=== PATIENT | male | born 1970 | race Caucasian/White ===

== ENCOUNTER → 2018-06-22 | Outpatient (CLI) | payer OTHER ==
[~2018-06-22] MED LIST: ALPR1TAB2 PO; BUSP15TA70 PO; IMD/2 PO; LISI-461 PO; LISI10TA PO; METR-163 PO; MULTTAB58 PO; NUTR-977 PO; PRLSR20 PO; SULF500T36 PO; SULF500T8 PO
[2018-06-22 09:27] LABS: BLOOD UREA NITROGEN 10 mg/dl (7-18); CALCIUM 8.3 mg/dl (8.5-10.1); CARBON DIOXIDE 30 mmol/L (21-32); CREATININE 0.95 mg/dl (0.60-1.40); GLUCOSE 80 mg/dl (70-99); POTASSIUM 3.3 mmol/L (3.5-5.1); SODIUM 143 mmol/L (136-145)
== END ==
LOC: C.LABSPEC 10:44
DX: N17.9 Acute kidney failure, unspecified (principal)

== ENCOUNTER 2021-02-04 13:44 | Observation (INO) ==
[2021-02-04] MEDS ORDERED: PIPERACILL/TAZOBAC CONSULT ACTIVE PRN ×2 (14:49→21:21)
[2021-02-04] MEDS ORDERED: PIPERACILLIN/TAZOBACTAM 4.5 GM/120 ML BAG IV ONE (14:49)
[2021-02-04] MEDS ORDERED: HYDROmorphone INJ 1 MG/ML SYRINGE IV STA (14:49)
--- NOTE | 2021-02-04 14:57 | Emergency Department Note ---
Impression & Plan Abdominal wall abscess, Crohn's disease, Fistula, Leukocytosis, Hypomagnesemia ED Provider Note NAME: GINGER HERNANDEZ AGE: 51 SEX: M : 1970 ARRIVES VIA: Walk-In INFORMANT: [Patient] ED PROVIDER(S): [Eddie Carvajal MD] CHIEF COMPLAINT: Abdominal pain HISTORY OF PRESENT ILLNESS: Patient is a 51-year-old male presents to the ER with several days of increasing abdominal pain. The pain is severe and constant without radiation. The patient states he has Crohn's disease and he has known fistulas. He states that he was discharged from [facility] in [place] on the , he states about 3 weeks ago. Patient states that he was told to stop his Cipro and Flagyl by his GI doctor about 9 days ago. Since stopping the Cipro and Flagyl, he seems to be getting worse. He has had increased drainage across the abdomen from an area that has been termed a fistula. He has more pain in this area as well. He states he has rectal drains now but they are doing well, no drainage and no pain in the rectal area. The patient has had a day or so of a low-grade temperature. He has had some nausea without vomiting. There has been no cough or congestion or shortness of breath. The patient states that he is concerned that his Crohn's and his fistulas are worsening. Of note, the patient is scheduled for a colonoscopy on the , 5 days from now. REVIEW OF SYSTEMS: See HPI for pertinent positives and negatives. A total of ten systems were reviewed and were otherwise negative. PMHx/PSHx: See Below SOCIAL HISTORY: See Below. PHYSICAL EXAM: GENERAL: Patient is in mild distress from pain. HEENT: No acute trauma, normocephalic atraumatic, mucous membranes moist, no nasal congestion, no scleral icterus. NECK: No stridor, no adenopathy, no meningismus, trachea is midline. Lungs: Wheezes heard bilaterally, no respiratory distress, no rhonchi. Breath sounds equal. HEART: Mildly tachycardic, regular rhythm, no murmurs. ABDOMEN: Soft. He does have an area of puslike drainage to the mid lower abdomen. There is some surrounding erythema and swelling. This area is tender. He has some mild diffuse abdominal tenderness across the rest of his abdomen. EXTREMITIES: No cyanosis or edema, full range of motion of all the joints with out pain or difficulty, no signs for acute trauma. NEUROLOGIC: Oriented x 3, no acute motor or sensory deficits, no focal weakness. SKIN: No rash, no jaundice, no diaphoresis. Rectal: He does have 2 drains to each side of the anus/rectum. No drainage, no fluctuance or tenderness to palpation. DIFFERENTIAL DIAGNOSIS: Appendicitis, infections, diverticulitis, UTI, obstruction, abscess, mesenteric ischemia, aortic pathology, inflammatory bowel disease, renal colic, PUD, warren creatitis, biliary pathology, hernia, volvulus, constipation, as well as other pathologies. EMERGENCY DEPARTMENT COURSE/PROCEDURES: ECG: Indication was tachycardia. The ECG shows a normal sinus rhythm with some sinus arrhythmia. The rate is 93. There is no ST elevation, no PVCs. The QTc is 450. When compared to an ECG from 28 December 2020, there is no sign ificant change. Continuous Cardiac Monitoring: An order was placed for continuous cardiac monitoring. The monitor shows a rate of 97 with normal sinus rhythm. MEDICAL DECISION MAKING: There is a moderate leukocytosis, this of course is consistent with infection. The patient has a mild anemia at 12.7. There is a normal platelet count. No kidney failure. The patient's magnesium is somewhat low at 1.5. No worrisome liver enzyme elevation. No evidence for pancreatitis. Urinalysis does not show infection. Abdominal and pelvis CT shows some chronic change from his Crohn's disease. There was a potential new collection of fluid/abscess across the abdominal wall. No bowel obstruction noted. There was no new internal abscess documented. On exam, the patient was not toxic or febrile. He did not have peritonitis. I did obtain a culture from the drainage from his abdominal wall, this result is pending. Patient was given IV Zosyn as empiric antibiotic coverage. He was given IV magnesium, IV Dilaudid. I did speak with the surgeon from [facility] in [place]. They did not feel the patient required emergent transfer to their facility. They felt that if he did well overnight with IV antibiotics that he may be then discharged on oral a ntibiotics to follow-up next week with them. If he worsened overnight or had difficulty throughout the day tomorrow, transfer may at that point be required. I spoke with the patient and case management. The on-call hospitalist was consulted. 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 Hypertension Medical marijuana use Opioid dependence Perianal fistula due to Crohn's disease Throat pain Tongue pain Surgical History Fistula anal fistula x2 with repair H/O skin graft RIGHT LEG History of bowel resection X2 TOTAL History of colonoscopy History of esophagogastroduodenoscopy (EGD) History of incision and drainage (~12/2020) perianal fistula and abdominal wall abcess with seton placement @ [facility] History of open reduction and internal fixation (ORIF) procedure LEFT ANKLE History of surgery Salivary Gland - 2017, Sublingual Gland - 2018 History of tonsillectomy Family History Mother Family hx of colon cancer Stroke Family/Other Family history of diabetes mellitus Other Allergies Cancer Colorectal cancer Hypertension No family history of adverse response to anesthesia No family history of bleeding disorder Denies family history of Ovarian cancer Prostate cancer Myocardial infarction Breast cancer Social History Smoking Status: Current every day smoker Tobacco Type: Cigarettes Cigarettes Per Day: "1 pack lasts 10 days"; Second Hand Exposure: Yes (mom smoked); Hx Alcohol Use: No Hx Substance Use: Yes (medical marijuana) Preferred Language: Libyan Communication Ability: Effective Visual Impairment: No Limitations Hearing Ability: Normal Assistance Representative Required: No Beliefs That Will Affect Care: None marital status: Current Living Situation: Spouse current occupational status: disabled Feels Safe at Home: Yes Childhood Exposure to Second-Hand Smoke: Yes Dental Care, Regularly: Yes Physical Activity Frequency: Daily Seatbelt Use: always Sunscreen Use: No Assistive Devices: Glasses Allergies Allergies Allergy/AdvReac Type Severity Reaction Status Date / Time infliximab Allergy Severe TONGUE Verified 02/04/21 16:52 SWELLING codeine Allergy Mild Rash Verified 02/04/21 16:52 Home Meds Home Medications Medication Instructions Recorded Confirmed alprazolam 1 mg PO TID PRN 05/18/19 02/04/21 vitamin B complex [B 1 tab PO QAM 12/10/20 02/04/21 Complex-Vitamin B12] cholecalciferol (vitamin D3) 50,000 unit PO WK 12/19/20 02/04/21 Previous Rx's Medication Instructions Recorded lisinopril 10 mg tablet 10 mg PO QAM #90 tab 08/10/20 loperamide 2 mg tablet 2 mg PO Q6H PRN #60 tab 08/10/20 loratadine 10 mg tablet 10 mg PO QAM #90 tab 08/10/20 nystatin 100,000 unit/mL oral 5 ml PO QID #250 ml 12/17/20 suspension omeprazole 20 mg capsule,delayed 20 mg PO BID #180 cap 01/10/21 release oxycodone-acetaminophen 7.5 mg-325 1 tab PO Q8H PRN #90 tab 01/13/21 mg tablet blood glucose control, low #1 ea 01/20/21 blood sugar diagnostic #200 ea 01/20/21 blood-glucose meter #1 ea 01/20/21 lancets 30 gauge #200 ea 01/20/21 gabapentin 300 mg capsule 300 mg PO .COMPLEX #90 cap 01/27/21 sodium sulf 1.479 gram-potas 24 tab PO .COMPLEX #24 tab 01/27/21 chloride 0.188 gram-magnesium sulf tablet sulfasalazine 500 mg tablet 500 mg PO BID #180 tab 01/27/21 Results & Data (ED) Vital Signs Vital Signs - 24 hr 02/04/21 13:52 02/04/21 15:09 02/04/21 15:12 Temperature 36.8 C Temperature Source Oral Pulse Rate 130 H 98 H 112 H Pulse Rate [Finger] Pulse Rate from SpO2 Sensor 96 H Respiratory Rate 20 20 20 Respiratory Effort / Characteristics Non-Labored Spontaneous Respiratory Depth Normal Respiratory Pattern Regular Blood Pressure 136/89 131/86 Blood Pressure [Left Arm] Blood Pressure Mean 104 101 Blood Pressure Mean [Left Arm] Pulse Oximetry 95 95 95 Oxygen Delivery Method Room Air Room Air Sepsis Recent Fever Within 48 Hours No Sepsis New/Unexplained Change in Mental Status N/A Sepsis Action Taken by Nursing No Action Required 02/04/21 15:13 02/04/21 15:30 02/04/21 15:31 Temperature Temperature Source Pulse Rate 97 H 91 H 96 H Pulse Rate [Finger] Pulse Rate from SpO2 Sensor 90 91 H Respiratory Rate 17 22 13 Respiratory Effort / Characteristics Respiratory Depth Respiratory Pattern Blood Pressure 132/88 Blood Pressure [Left Arm] Blood Pressure Mean 102 Blood Pressure Mean [Left Arm] Pulse Oximetry 95 96 Oxygen Delivery Method Sepsis Recent Fever Within 48 Hours Sepsis New/Unexplained Change in Mental Status Sepsis Action Taken by Nursing 02/04/21 16:00 02/04/21 16:01 02/04/21 16:30 Temperature Temperature Source Pulse Rate 83 86 85 Pulse Rate [Finger] Pulse Rate from SpO2 Sensor 85 92 H 88 Respiratory Rate 19 20 18 Respiratory Effort / Characteristics Respiratory Depth Respiratory Pattern Blood Pressure 128/87 141/77 H Blood Pressure [Left Arm] Blood Pressure Mean 100 98 Blood Pressure Mean [Left Arm] Pulse Oximetry 96 95 95 Oxygen Delivery Method Sepsis Recent Fever Within 48 Hours Sepsis New/Unexplained Change in Mental Status Sepsis Action Taken by Nursing 02/04/21 16:31 02/04/21 17:00 02/04/21 17:01 Temperature Temperature Source Pulse Rate 89 80 93 H Pulse Rate [Finger] Pulse Rate from SpO2 Sensor 88 81 91 H Respiratory Rate 17 12 19 Respiratory Effort / Characteristics Respiratory Depth Respiratory Pattern Blood Pressure 110/80 Blood Pressure [Left Arm] Blood Pressure Mean 90 Blood Pressure Mean [Left Arm] Pulse Oximetry 94 95 94 Oxygen Delivery Method Sepsis Recent Fever Within 48 Hours Sepsis New/Unexplained Change in Mental Status Sepsis Action Taken by Nursing 02/04/21 17:30 02/04/21 17:31 02/04/21 18:00 Temperature Temperature Source Pulse Rate 83 83 77 Pulse Rate [Finger] Pulse Rate from SpO2 Sensor Respiratory Rate 19 21 16 Respiratory Effort / Characteristics Respiratory Depth Respiratory Pattern Blood Pressure 107/82 113/85 Blood Pressure [Left Arm] Blood Pressure Mean 90 94 Blood Pressure Mean [Left Arm] Pulse Oximetry Oxygen Delivery Method Sepsis Recent Fever Within 48 Hours Sepsis New/Unexplained Change in Mental Status Sepsis Action Taken by Nursing 02/04/21 18:01 02/04/21 18:51 Temperature Temperature Source Pulse Rate 79 Pulse Rate [Finger] 77 Pulse Rate from SpO2 Sensor Respiratory Rate 15 18 Respiratory Effort / Characteristics Respiratory Depth Respiratory Pattern Blood Pressure Blood Pressure [Left Arm] 109/85 Blood Pressure Mean Blood Pressure Mean [Left Arm] 93 Pulse Oximetry 95 Oxygen Delivery Method Room Air Sepsis Recent Fever Within 48 Hours Sepsis New/Unexplained Change in Mental Status Sepsis Action Taken by [facility] Medications Current Medication List: was personally reviewed by me Laboratory Data Attestation: I reviewed the patient's lab results. Result diagrams: 02/04/21 15:00 02/04/21 15:00 Lab Results 02/04/21 02/04/21 02/04/21 Range/Units 15:00 15:00 15:06 WBC 16.74 H (4.8-10.8) K/uL RBC 4.32 L (4.7-6.1) M/uL Hgb 12.7 L (14.0-18.0) g/dL Hct 37.2 L (42-52) % MCV 86.1 (80-100) fL MCH 29.4 (25-34) pg MCHC 34.1 (32-36) g/dL RDW Std Deviation 46.3 (36.4-46.3) fL RDW Coeff of Juancarlos 14.6 H (11.5-14.5) % Plt Count 367 (130-400) K/uL MPV 10.1 (7.4-10.4) fL Immature Gran % (Auto) 0.5 % Neut % (Auto) 72.2 % Lymph % (Auto) 20.6 % [place] % (Auto) 6.0 % Eos % (Auto) 0.5 % Baso % (Auto) 0.2 % Neut # (Auto) 12.08 H (1.4-6.5) K/uL Lymph # (Auto) 3.45 H (1.2-3.4) K/uL [place] # (Auto) 1.01 H (0.11-0.59) K/uL Eos # (Auto) 0.09 (0-0.5) K/uL Baso # (Auto) 0.03 (0-0.2) K/uL Immature Gran # (Auto) 0.08 H (0.00-0.02) K/uL Sodium 138 (136-145) mmol/L Potassium 3.9 (3.5-5.1) mmol/L Chloride 106 (98-107) mmol/L Carbon Dioxide 26 (21-32) mmol/L Anion Gap 6.0 (3-11) BUN 13 (7-18) mg/dl Creatinine 0.93 (0.6-1.4) mg/dl Est Cr Clr Drug Dosing 87.8 ml/min Est GFR ( Amer) 111.3 Est GFR (Non-Af Amer) 96.1 BUN/Creatinine Ratio 14.5 (10-20) Glucose 121 H (70-99) mg/dl Lactate 1.4 (0.4-2.0) mmol/L Calcium 9.0 (8.5-10.1) mg/dl Magnesium 1.5 L (1.8-2.4) mg/dl Total Bilirubin 0.3 (0.2-1) mg/dl AST 23 (15-37) U/L ALT 46 (12-78) U/L Alkaline Phosphatase 83 (45-117) U/L Total Protein 7.1 (6.4-8.2) gm/dl Albumin 3.5 (3.4-5.0) gm/dl Globulin 3.6 (2.5-4.0) gm/dl Albumin/Globulin Ratio 1.0 (0.9-2) Lipase 178 (73-393) U/L Urine Color Urine Appearance (Clear) Urine pH (4.5-7.5) Ur Specific [place] (1.000-1.030) Urine Protein (Negative) Urine Glucose (UA) (Negative) Urine Ketones (Negative) Urine Blood (Negative) Urine Nitrite (Negative) Urine Bilirubin (Negative) Urine Urobilinogen (Negative) Ur Leukocyte Esterase (Negative) 02/04/21 Range/Units 15:28 WBC (4.8-10.8) K/uL RBC (4.7-6.1) M/uL Hgb (14.0-18.0) g/dL Hct (42-52) % MCV (80-100) fL MCH (25-34) pg MCHC (32-36) g/dL RDW Std Deviation (36.4-46.3) fL RDW Coeff of Juancarlos (11.5-14.5) % Plt Count (130-400) K/uL MPV (7.4-10.4) fL Immature Gran % (Auto) % Neut % (Auto) % Lymph % (Auto) % [place] % (Auto) % Eos % (Auto) % Baso % (Auto) % Neut # (Auto) (1.4-6.5) K/uL Lymph # (Auto) (1.2-3.4) K/uL [place] # (Auto) (0.11-0.59) K/uL Eos # (Auto) (0-0.5) K/uL Baso # (Auto) (0-0.2) K/uL Immature Gran # (Auto) (0.00-0.02) K/uL Sodium (136-145) mmol/L Potassium (3.5-5.1) mmol/L Chloride (98-107) mmol/L Carbon Dioxide (21-32) mmol/L Anion Gap (3-11) BUN (7-18) mg/dl Creatinine (0.6-1.4) mg/dl Est Cr Clr Drug Dosing ml/min Est GFR ( Amer) Est GFR (Non-Af Amer) BUN/Creatinine Ratio (10-20) Glucose (70-99) mg/dl Lactate (0.4-2.0) mmol/L Calcium (8.5-10.1) mg/dl Magnesium (1.8-2.4) mg/dl Total Bilirubin (0.2-1) mg/dl AST (15-37) U/L ALT (12-78) U/L Alkaline Phosphatase (45-117) U/L Total Protein (6.4-8.2) gm/dl Albumin (3.4-5.0) gm/dl Globulin (2.5-4.0) gm/dl Albumin/Globulin Ratio (0.9-2) Lipase (73-393) U/L Urine Color Yellow Urine Appearance Clear (Clear) Urine pH 5.5 (4.5-7.5) Ur Specific [place] 1.022 (1.000-1.030) Urine Protein Negative (Negative) Urine Glucose (UA) Negative (Negative) Urine Ketones Trace H (Negative) Urine Blood Negative (Negative) Urine Nitrite Negative (Negative) Urine Bilirubin Negative (Negative) Urine Urobilinogen Negative (Negative) Ur Leukocyte Esterase Negative (Negative) Administered Medications Hydromorphone HCl (Hydromorphone Inj 1 Mg/Ml Syringe) 1 mg IV Q30M PRN PRN Reason: Pain Stop: 02/18/21 14:48 Last Admin: 02/04/21 18:50 Dose: 1 mg Documented by: [id number] Admin: 02/04/21 16:22 Dose: 1 mg Documented by: [id number] Discontinued Medications Hydromorphone HCl (Hydromorphone Inj 1 Mg/Ml Syringe) 1 mg IV NOW STA Stop: 02/04/21 14:50 Last Admin: 02/04/21 15:24 Dose: 1 mg Documented by: [id number] Piperacillin Sod/Tazobactam Sod (Zosyn) 4.5 gm in 120 mls @ 240 mls/hr IV NOW ONE Stop: 02/04/21 15:18 Last Infusion: 02/04/21 15:54 Dose: 0 mls/hr Documented by: [id number] Admin: 02/04/21 15:24 Dose: 240 mls/hr Documented by: [id number] Magnesium Sulfate/Dextrose (Magnesium Sulfate / D5w) 1 gm in 100 mls @ 100 mls/hr IV NOW STA Stop: 02/04/21 16:37 Last Infusion: 02/04/21 17:52 Dose: 0 mls/hr Documented by: [id number] Admin: 02/04/21 16:22 Dose: 100 mls/hr Documented by: [id number] Ioversol (Ioversol 100ml) 94 ml IV ONCE ONE Stop: 02/04/21 17:19 Last Admin: 02/04/21 17:18 Dose: 94 ml Documented by: [id number] Imaging Data Radiologist's Impression: CT SCAN OF THE ABDOMEN AND PELVIS WITH IV CONTRAST CLINICAL HISTORY: Generalized abdominal pain. Crohn's disease. Fistulous. COMPARISON STUDY: Multiple prior abdominal CT scans, most recently dated 01/06/2021. TECHNIQUE: Following the IV administration of 94 cc of Optiray 320, CT scan of the abdomen and pelvis is performed from the lung bases to the proximal femora. Images are reviewed in the axial, sagittal, and coronal planes. IV contrast was administered without complication. Oral contrast was utilized. A dose lowering technique was utilized adhering to the principles of ALARA. CT DOSE: 285.60 mGy.cm FINDINGS: Lung bases: The heart is normal in size and without pericardial effusion. A fat- containing Bochdalek hernia is seen at the left lung base. Scattered calcified granulomas are observed. The lung bases are otherwise clear. Liver: The contrast-enhanced liver is enlarged, measuring 22.0 cm in length. The liver is otherwise normal in contour and attenuation. There is no intrahepatic biliary ductal dilatation. The hepatic veins and portal veins are patent. Gallbladder: Unremarkable. Spleen: Normal in size and attenuation. Pancreas: Unremarkable. Adrenal glands: A 1.6 cm right adrenal adenoma is unchanged. The left adrenal gland is normal as imaged. Kidneys: The contrast enhanced kidneys are normal in size and without hydronephrosis. The kidneys enhance symmetrically. Abdominal vasculature: The abdominal aorta is normal in course and caliber noting mild atherosclerotic calcification. Bowel: There is postoperative change from ileocecal resection with ileocolic anastomosis. No bowel obstruction is seen, with enteric contrast reaching the transverse colon. There are thick walled and edematous loops of distal small bowel with mucosal hyperemia seen at and above the anastomosis with surrounding inflammation. There is a fistulous connection between an inflamed loop of small bowel in the ventral lower abdomen and the subcutaneous soft tissues in the right lower quadrant. This is best seen on axial image #270. This extends to the peritoneum. The soft tissue collection within the abdominal wall at this site seen on 12/28/2020 has resolved. Edema is again seen within the right rectus muscle at this level on image #268. There is dermal thickening and cutaneous fluid identified in the ventral abdominal wall just to the right of midline on image #277. This measures up to 8 mm in thickness. There are wires present within bilateral perianal fistulas. The perianal fluid collections seen on 12/28/2020 are no longer apparent. Peritoneum: There is no intraperitoneal free air or abdominal ascites. Lymphadenopathy: Numerous mildly enlarged mesenteric lymph nodes are present in the lower abdomen and measure up to 9 mm in short axis. Pelvic viscera: The bladder, prostate, and seminal vesicles are normal as imaged. Skeletal structures: No lytic or blastic lesions are seen. Soft tissues: The patient is cachectic. IMPRESSION: 1. Again seen are postoperative changes of right ileocecectomy with ileocolic anastomosis. There is no bowel obstruction. 2. Again seen is evidence of active inflammatory bowel disease involving the distal/terminal ileum above the anastomosis. 3. Again seen is a fistulous tract between a loop of distal ileum and the right lower quadrant abdominal wall. 4. The fluid collection within the right lower quadrant abdominal wall seen on 12/28/2020 has resolved. There is dermal thickening with a tiny pocket of fluid at the dermal surface just the right of midline at this level. This is new from previous and may represent a tiny abscess. Clinical correlation will be required. 5. There is persistent edema and infiltrative change seen within the right rectus muscle at this level. No organized fluid collection is identified at this site. 6. No intraperitoneal free air or abdominal ascites is identified. 7. There are wires within the bilateral perianal fistulas. The fluid collections seen on 12/28/2020 have resolved. 8. Hepatomegaly. 9. Mildly enlarged mesenteric lymph nodes are likely reactive. 10. Additional findings as above. Discharge Plan Visit Data Chief Complaint: Abdominal Pain Stated Complaint: ABDOMINAL PAIN ED Provider: Eddie Carvajal Discharge Problem: Abdominal wall abscess, Crohn's disease, Fistula, Leukocytosis, Hypomagnesemia Patient Disposition: Admitted As Inpatient Condition: Fair Forms Stand Alone Forms: [email or web address] [facility] [employer] Prescriptions Prescriptions: No Action gabapentin 300 mg capsule 300 mg PO .COMPLEX Qty: 90 RF: 2 nystatin 100,000 unit/mL suspension 5 ml PO QID Qty: 250 RF: 0 omeprazole 20 mg capsule,delayed release(DR/EC) 20 mg PO BID Qty: 180 RF: 0 oxycodone-acetaminophen [Percocet] 7.5-325 mg tablet 1 tab PO Q8H PRN (Reason: Pain) Qty: 90 RF: 0 (DME) blood-glucose meter [True Metrix Air Glucose Meter] Kit See Rx Instructions .ROUTE .MEDSUPPLY Qty: 1 RF: 0 (DME) True Metrix Glucose Test Strip Strip See Rx Instructions .ROUTE .MEDSUPPLY Qty: 200 RF: 1 (DME) lancets [TRUEplus Lancets] 30 gauge misc See Rx Instructions .ROUTE .MEDSUPPLY Qty: 200 RF: 1 (DME) True Metrix Level 1 Solution See Rx Instructions .ROUTE .MEDSUPPLY Qty: 1 RF: 0 sulfasalazine 500 mg tablet 500 mg PO BID Qty: 180 RF: 1 lisinopril 10 mg tablet 10 mg PO QAM Qty: 90 RF: 3 loratadine [Claritin] 10 mg tablet 10 mg PO QAM Qty: 90 RF: 3 loperamide [Imodium A-D] 2 mg tablet 2 mg PO Q6H PRN (Reason: Diarrhea) Qty: 60 RF: 5 Sutab 1.479-0.188 gram tablet 24 tab PO .COMPLEX Qty: 24 RF: 0 alprazolam 1 mg tablet 1 mg PO TID PRN (Reason: Anxiety) RF: 0 cholecalciferol (vitamin D3) 1,250 mcg (50,000 unit) capsule 50,000 unit PO WK RF: 0 vitamin B complex [B Complex-Vitamin B12] Tablet 1 tab PO QAM RF: 0 Referrals Referrals: Mahad Smith DO [Primary Care Provider] - Discharge Problem: Crohn's disease Qualifiers: Gastrointestinal tract location: unspecified location Digestive disease complication type: with fistula Qualified Code(s): K50.913 - Crohn's disease, unspecified, with fistula Leukocytosis Qualifiers: Leukocytosis type: unspecified Qualified Code(s): D72.829 - Elevated white bl ood cell count, unspecified
[2021-02-04 15:17] LABS: Basophils # (auto) 0.03 K/uL (0-0.2); Basophils % (auto) 0.2 %; Eosinophils # (auto) 0.09 K/uL (0-0.5); Eosinophils % (auto) 0.5 %; Hematocrit (blood only) 37.2 % (42-52); Hemoglobin 12.7 g/dL (14.0-18.0); Immature Granulocytes # (auto) 0.08 K/uL (0.00-0.02); Immature Granulocytes % (auto) 0.5 %; Lymphocytes # (auto) 3.45 K/uL (1.2-3.4); Lymphocytes % (auto) 20.6 %; Mean Corpuscular Hemoglobin 29.4 pg (25-34); Mean Corpuscular Hgb Conc 34.1 g/dL (32-36); Mean Corpuscular Volume 86.1 fL (80-100); Mean Platelet Volume 10.1 fL (7.4-10.4); Monocytes # (auto) 1.01 K/uL (0.11-0.59); Neutrophils # (auto) 12.08 K/uL (1.4-6.5); Neutrophils % (auto) 72.2 %; Platelet Count 367 K/uL (130-400); RDW Coefficient of Variation 14.6 % (11.5-14.5); RDW Standard Deviation 46.3 fL (36.4-46.3); Red Blood Count 4.32 M/uL (4.7-6.1); White Blood Count 16.74 K/uL (4.8-10.8)
[2021-02-04 15:37] LABS: Albumin Level 3.5 gm/dl (3.4-5.0); BUN Creatinine Ratio 14.5 (10-20); Creatinine Clr Calc Pharmacy 87.8 ml/min; Est GFR (African American) 111.3; Est GFR (Non-African American) 96.1; Magnesium 1.5 mg/dl (1.8-2.4); Potassium 3.9 mmol/L (3.5-5.1)
[2021-02-04] MEDS ORDERED: MAGNESIUM SULFATE / D5W 1 GM/100 ML BAG IV STA (15:38)
[2021-02-04 15:39] LABS: Bilirubin,Total 0.3 mg/dl (0.2-1); Globulin 3.6 gm/dl (2.5-4.0); Total Protein 7.1 gm/dl (6.4-8.2)
[2021-02-04 15:40] LABS: Appearance Urine Clear (Clear); Bilirubin Urine Negative (Negative); Blood Urine Negative (Negative); Color Urine Yellow; Glucose Urine UA Negative (Negative); Ketones Urine Trace (Negative); Leukocyte Esterase Urine Negative (Negative); Nitrite Urine Negative (Negative); Protein Urine Negative (Negative); Specific Gravity Urine 1.022 (1.000-1.030); Urobilinogen Urine Negative (Negative); pH Urine 5.5 (4.5-7.5)
[2021-02-04] MEDS: HYDROmorphone INJ 1 MG/ML SYRINGE IV PRN ×3 (16:22→23:30)
[2021-02-04] MEDS ORDERED: OPTIRAY 320 100ml IV ONE (17:18)
--- NOTE | 2021-02-04 17:57 | CT Scan Report ---
CT SCAN OF THE ABDOMEN AND PELVIS WITH IV CONTRAST CLINICAL HISTORY: Generalized abdominal pain. Crohn's disease. Fistulous. COMPARISON STUDY: Multiple prior abdominal CT scans, most recently dated 01/06/2021. TECHNIQUE: Following the IV administration of 94 cc of Optiray 320, CT scan of the abdomen and pelvi s is performed from the lung bases to the proximal femora. Images are reviewed in the axial, sagittal , and coronal planes. IV contrast was administered without complication. Oral contrast was utilized. A dose lowering technique was utilized adhering to the principles of ALARA. CT DOSE: 285.60 mGy.cm FINDINGS: Lung bases: The heart is normal in size and without pericardial effusion. A fat-containing Bochdalek hernia is seen at the left lung base. Scattered calcified granulomas are observed. The lung bases are otherwise clear. Liver: The contrast-enhanced liver is enlarged, measuring 22.0 cm in length. The liver is otherwise n ormal in contour and attenuation. There is no intrahepatic biliary ductal dilatation. The hepatic vei ns and portal veins are patent. Gallbladder: Unremarkable. Spleen: Normal in size and attenuation. Pancreas: Unremarkable. Adrenal glands: A 1.6 cm right adrenal adenoma is unchanged. The left adrenal gland is normal as imag ed. Kidneys: The contrast enhanced kidneys are normal in size and without hydronephrosis. The kidneys enh ance symmetrically. Abdominal vasculature: The abdominal aorta is normal in course and caliber noting mild atheroscleroti c calcification. Bowel: There is postoperative change from ileocecal resection with ileocolic anastomosis. No bowel ob struction is seen, with enteric contrast reaching the transverse colon. There are thick walled and ed ematous loops of distal small bowel with mucosal hyperemia seen at and above the anastomosis with wade rounding inflammation. There is a fistulous connection between an inflamed loop of small bowel in the ventral lower abdomen and the subcutaneous soft tissues in the right lower quadrant. This is best se en on axial image #270. This extends to the peritoneum. The soft tissue collection within the abdomin al wall at this site seen on 12/28/2020 has resolved. Edema is again seen within the right rectus muscl e at this level on image #268. There is dermal thickening and cutaneous fluid identified in the ventr al abdominal wall just to the right of midline on image #277. This measures up to 8 mm in thickness. There are wires present within bilateral perianal fistulas. The perianal fluid collections seen on 12/28/2020 are no longer apparent. Peritoneum: There is no intraperitoneal free air or abdominal ascites. Lymphadenopathy: Numerous mildly enlarged mesenteric lymph nodes are present in the lower abdomen and measure up to 9 mm in short axis. Pelvic viscera: The bladder, prostate, and seminal vesicles are normal as imaged. Skeletal structures: No lytic or blastic lesions are seen. Soft tissues: The patient is cachectic. IMPRESSION: 1. Again seen are postoperative changes of right ileocecectomy with ileocolic anastomosis. There is n o bowel obstruction. 2. Again seen is evidence of active inflammatory bowel disease involving the distal/terminal ileum ab ove the anastomosis. 3. Again seen is a fistulous tract between a loop of distal ileum and the right lower quadrant abdomi nal wall. 4. The fluid collection within the right lower quadrant abdominal wall seen on 12/28/2020 has resolved. There is dermal thickening with a tiny pocket of fluid at the dermal surface just the right of midli ne at this level. This is new from previous and may represent a tiny abscess. Clinical correlation wi ll be required. 5. There is persistent edema and infiltrative change seen within the right rectus muscle at this leve l. No organized fluid collection is identified at this site. 6. No intraperitoneal free air or abdominal ascites is identified. 7. There are wires within the bilateral perianal fistulas. The fluid collections seen on 12/28/2020 hav e resolved. 8. Hepatomegaly. 9. Mildly enlarged mesenteric lymph nodes are likely reactive. 10. Additional findings as above. ACT 112: Negative or not required by law. Electronically signed by: Eddie Weiner M.D. 02/04/2021 5:55 PM
--- NOTE | 2021-02-04 20:00 | History & Physical Report ---
Date of Service February 04, 2021 Assessment & Plan (1) Crohn's disease: 51-year-old male with a past medical history of Crohn's disease with numerous associated bowel surgeries and perianal fistulas with drains in place, hyperlipidemia, anxiety, presents with a 5-day history of increasing abdominal pain. #Acute on chronic exacerbation of Crohn's disease causing abdominal and perianal fistulas with leukocytosis concerning for infection Patient with a longstanding history of Crohn's disease well-known to veronica Macedo and Arash BATEMAN. Recently discharged from [place] for Crohn's disease flareup at which point his abdominal abscess was drained, and bilateral perianal drains were placed in his fistulas. Patient was discharged on Cipro and Flagyl and did well with completing his course of antibiotics approximately 9 days ago. Since that time he said increasing abdominal pain, with drainage from his abdominal fistula. He has had some associated fevers and chills, nausea and vomiting. He presented today for evaluation of his symptoms. [facility] gastroenterology was called recommending admission and IV antibiotics and GI consultation. Patient reports he is currently tolerating his diet, voiding and stooling appropriately -Zosyn narrow pending GI recommendations -Consult GI -N.p.o. pending GI evaluation -Daily BMP/CBC -Pain control, baseline oxycodone, 2 mg morphine q4h prn for exacerbation -Blood cultures obtained -Continue loperamide 2 mg p.o. every 6 hours as needed #Hypertension -Lisinopril 10 mg #Chronic pain -Continue gabapentin 300 mg -Continue oxycodone 7.5 mg325 #GERD -Continue omeprazole #Anxiety -Continue lorazepam 1 mg p.o. 3 times daily as needed FENa: N.p.o. pending GI evaluation Code Status: Full code DVT PPX: SCDs PT/OT: Not indicated Dispo: [facility] Cody Baum MD PGY 2, FCM This chart was completed utilizing [employer] voice recognition software. Grammatical errors, random word insertions, pronoun errors, and in complete sentences are an occasional consequence of the system. Any questions or concerns about the content, text, or information contained within the body of this dictation should be addressed directly to the physician for clarification. (2) Fistula: (3) Leukocytosis: (4) Hypomagnesemia: (5) Hyperlipidemia: (6) Benign hypertension: (7) Anxiety disorder: (8) Perianal fistula due to Crohn's disease: History of Present Illness 51-year-old male with a past medical history of Crohn's disease with numerous associated bowel surgeries and perianal fistulas with drains in place, hyperlipidemia, anxiety, presents with a 5-day history of increasing abdominal pain. Pain is severe and constant without radiation. He was recently discharged from [facility] in [place] on the on Cipro and Flagyl completing his regimen approximately 9 days ago. Since stopping his antibiotics his pain is been getting worse. He has drainage from his abdomen from a fistula which has been present since his most recent discharge. He has increased pain in his area. He states he has rectal drains in place and that they have been working well, he has no complaints or issues there. Patient does endorse a fever and chills over the last few days he has had nausea with some vomiting. Denying respiratory symptoms including physical shortness of breath, cardiac symptoms including chest pressure or chest pain. He has had no recent illnesses. States he has been tolerating his diet recently, voiding and stooling appropriately. Patient states he is scheduled for colonoscopy on the 5 days from now. Presentation to the [facility] the emergency department to routine labs were obtained demonstrating a white count of 16.74 with a neutrophil predominance, Chem-7 within normal limits, liver function studies within normal limits., Lipase within normal limits, negative UA. CT abdomen pelvis was obtained demonstrating postoperative changes negative for bowel obstruction evidence of active inflammatory bowel disease, fluid collection within the right lower quadrant of the abdominal wall seen on 12/28/2020 is resolved, dermal thickening with a tiny pocket of fluid at the dermal surface just the right of the midline at this level, wires within the bilateral perianal fistulas with resolution of the fluid collections. Per report [facility] gastroenterology was contacted recommending the patient be admitted provided IV antibiotics and monitoring. They plan to follow-up with him at his scheduled colonoscopy. Primary Care Provider: Mahad Smith, Allergies Allergy/AdvReac Type Severity Reaction Status Date / Time infliximab Allergy Severe TONGUE Verified 02/04/21 16:52 SWELLING codeine Allergy Mild Rash Verified 02/04/21 16:52 Home Medications Medication Instructions Recorded Confirmed Type alprazolam 1 mg PO TID PRN 05/18/19 02/04/21 History lisinopril 10 mg tablet 10 mg PO QAM #90 tab 08/10/20 02/04/21 Rx loperamide 2 mg tablet 2 mg PO Q6H PRN #60 tab 08/10/20 02/04/21 Rx loratadine 10 mg tablet 10 mg PO QAM #90 tab 08/10/20 02/04/21 Rx vitamin B complex [B 1 tab PO QAM 12/10/20 02/04/21 History Complex-Vitamin B12] nystatin 100,000 unit/mL oral 5 ml PO QID #250 ml 12/17/20 02/04/21 Rx suspension cholecalciferol (vitamin D3) 50,000 unit PO WK 12/19/20 02/04/21 History omeprazole 20 mg capsule,delayed 20 mg PO BID #180 cap 01/10/21 02/04/21 Rx release oxycodone-acetaminophen 7.5 mg-325 1 tab PO Q8H PRN #90 tab 01/13/21 02/04/21 Rx mg tablet blood glucose control, low #1 ea 01/20/21 02/04/21 Rx blood sugar diagnostic #200 ea 01/20/21 02/04/21 Rx blood-glucose meter #1 ea 01/20/21 02/04/21 Rx lancets 30 gauge #200 ea 01/20/21 02/04/21 Rx gabapentin 300 mg capsule 300 mg PO .COMPLEX #90 cap 01/27/21 02/04/21 Rx sodium sulf 1.479 gram-potas 24 tab PO .COMPLEX #24 tab 01/27/21 02/04/21 Rx chloride 0.188 gram-magnesium sulf tablet sulfasalazine 500 mg tablet 500 mg PO BID #180 tab 01/27/21 02/04/21 Rx Past Med/Surg History Medical History Anemia chronic Anxiety Cardiac murmur no further details; no murmur noted per [facility] ER evaluation 05/18/19* Crohns disease GERD (gastroesophageal reflux disease) 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 Hypertension Medical marijuana use Opioid dependence Perianal fistula due to Crohn's disease Throat pain Tongue pain Surgical History Fistula anal fistula x2 with repair H/O skin graft RIGHT LEG History of bowel resection X2 TOTAL History of colonoscopy History of esophagogastroduodenoscopy (EGD) History of incision and drainage (~12/2020) perianal fistula and abdominal wall abcess with seton placement @ [facility] Renetta History of open reduction and internal fixation (ORIF) procedure LEFT ANKLE History of surgery Salivary Gland - 2018, Sublingual Gland - 2019 History of tonsillectomy Family History Mother Family hx of colon cancer Stroke Family/Other Family history of diabetes mellitus Other Allergies Cancer Colorectal cancer Hypertension No family history of adverse response to anesthesia No family history of bleeding disorder Denies family history of Ovarian cancer Prostate cancer Myocardial infarction Breast cancer Social History Smoking Status: Current some day smoker Tobacco Type: Cigarettes Cigarettes Per Day: 2 cigarettes per day at most; Second Hand Exposure: No; Do You Dip or Chew Tobacco: No (Hx of chewing tobacco; quit 5 years ago); Tobacco Cessation Education Requested by Patient: No Hx Alcohol Use: No Hx Substance Use: No Preferred Language: Rw[place] Communication Ability: Effective Visual Impairment: No Limitations Hearing Ability: Normal Operations Consultant Required: No Beliefs That Will Affect Care: None marital status: Current Living Situation: Spouse current occupational status: disabled Other Information That Helps Us Care for You: No Feels Safe at Home: Yes Safety Concerns: Feels Safe At This Time Childhood Exposure to Second-Hand Smoke: Yes Dental Care, Regularly: Yes Physical Activity Frequency: Daily Seatbelt Use: always Sunscreen Use: No Assistive Devices: None Review of Systems Review of Systems: All systems reviewed & are unremarkable except as noted in HPI & below Physical Exam Physical Exam: General: No acute distress HEENT: Normocephalic atraumatic Neck: Normal to visual inspection trachea midline Cardiac: Regular rate and rhythm I did not appreciate significant murmurs rubs or gallops, normal S1, normal S2, negative pedal edema, negative calf tenderness Respiratory: Clear to auscultation bilaterally with symmetrical chest expansion I did not appreciate any wheezes, rales, rhonchi GI: Soft, nontender, nondistended. Right lower quadrant demonstrating a fistula, no pus, draining fluid, tender to palpation around the fistula Neuro: Alert and oriented x4 Psych: Calm and cooperative with the interview Results & Data Results & Data ([facility]) Vital Signs (Past 12 Hours) Vital Signs Temp Pulse Pulse Resp BP BP Pulse Ox 02/04/21 18:51 77 18 109/85 95 02/04/21 18:01 79 15 02/04/21 18:00 77 16 113/85 02/04/21 17:31 83 21 02/04/21 17:30 83 19 107/82 02/04/21 17:01 93 H 19 94 02/04/21 17:00 80 12 110/80 95 02/04/21 16:31 89 17 94 02/04/21 16:30 85 18 141/77 H 95 02/04/21 16:01 86 20 95 02/04/21 16:00 83 19 128/87 96 02/04/21 15:31 96 H 13 96 02/04/21 15:30 91 H 22 132/88 95 02/04/21 15:13 97 H 17 02/04/21 15:12 112 H 20 95 02/04/21 15:09 98 H 20 131/86 95 02/04/21 13:52 36.8 C 130 H 20 136/89 95 Laboratory Results 02/04/21 02/04/21 02/04/21 Range/Units 19:40 19:40 15:28 WBC (4.8-10.8) K/uL RBC (4.7-6.1) M/uL Hgb (14.0-18.0) g/dL Hct (42-52) % MCV (80-100) fL MCH (25-34) pg MCHC (32-36) g/dL RDW Std Deviation (36.4-46.3) fL RDW Coeff of Juancarlos (11.5-14.5) % Plt Count (130-400) K/uL MPV (7.4-10.4) fL Immature Gran % (Auto) % Neut % (Auto) % Lymph % (Auto) % Stone % (Auto) % Eos % (Auto) % Baso % (Auto) % Neut # (Auto) (1.4-6.5) K/uL Lymph # (Auto) (1.2-3.4) K/uL Stone # (Auto) (0.11-0.59) K/uL Eos # (Auto) (0-0.5) K/uL Baso # (Auto) (0-0.2) K/uL Immature Gran # (Auto) (0.00-0.02) K/uL Sodium (136-145) mmol/L Potassium (3.5-5.1) mmol/L Chloride (98-107) mmol/L Carbon Dioxide (21-32) mmol/L Anion Gap (3-11) BUN (7-18) mg/dl Creatinine (0.6-1.4) mg/dl Est Cr Clr Drug Dosing ml/min Est GFR ( Amer) Est GFR (Non-Af Amer) BUN/Creatinine Ratio (10-20) Glucose (70-99) mg/dl Lactate (0.4-2.0) mmol/L Calcium (8.5-10.1) mg/dl Magnesium (1.8-2.4) mg/dl Total Bilirubin (0.2-1) mg/dl AST (15-37) U/L ALT (12-78) U/L Alkaline Phosphatase (45-117) U/L Total Protein (6.4-8.2) gm/dl Albumin (3.4-5.0) gm/dl Globulin (2.5-4.0) gm/dl Albumin/Globulin Ratio (0.9-2) Lipase (73-393) U/L Urine Color Yellow Urine Appearance Clear (Clear) Urine pH 5.5 (4.5-7.5) Ur Specific [place] 1.022 (1.000-1.030) Urine Protein Negative (Negative) Urine Glucose (UA) Negative (Negative) Urine Ketones Trace H (Negative) Urine Blood Negative (Negative) Urine Nitrite Negative (Negative) Urine Bilirubin Negative (Negative) Urine Urobilinogen Negative (Negative) Ur Leukocyte Esterase Negative (Negative) COVID-19 Eval Order Covid19 [facility] SARS-CoV-2, RNA, NAAT Pending 02/04/21 02/04/21 02/04/21 Range/Units 15:06 15:00 15:00 WBC 16.74 H (4.8-10.8) K/uL RBC 4.32 L (4.7-6.1) M/uL Hgb 12.7 L (14.0-18.0) g/dL Hct 37.2 L (42-52) % MCV 86.1 (80-100) fL MCH 29.4 (25-34) pg MCHC 34.1 (32-36) g/dL RDW Std Deviation 46.3 (36.4-46.3) fL RDW Coeff of Juancarlos 14.6 H (11.5-14.5) % Plt Count 367 (130-400) K/uL MPV 10.1 (7.4-10.4) fL Immature Gran % (Auto) 0.5 % Neut % (Auto) 72.2 % Lymph % (Auto) 20.6 % Stone % (Auto) 6.0 % Eos % (Auto) 0.5 % Baso % (Auto) 0.2 % Neut # (Auto) 12.08 H (1.4-6.5) K/uL Lymph # (Auto) 3.45 H (1.2-3.4) K/uL Stone # (Auto) 1.01 H (0.11-0.59) K/uL Eos # (Auto) 0.09 (0-0.5) K/uL Baso # (Auto) 0.03 (0-0.2) K/uL Immature Gran # (Auto) 0.08 H (0.00-0.02) K/uL Sodium 138 (136-145) mmol/L Potassium 3.9 (3.5-5.1) mmol/L Chloride 106 (98-107) mmol/L Carbon Dioxide 26 (21-32) mmol/L Anion Gap 6.0 (3-11) BUN 13 (7-18) mg/dl Creatinine 0.93 (0.6-1.4) mg/dl Est Cr Clr Drug Dosing 87.8 ml/min Est GFR ( Amer) 111.3 Est GFR (Non-Af Amer) 96.1 BUN/Creatinine Ratio 14.5 (10-20) Glucose 121 H (70-99) mg/dl Lactate 1.4 (0.4-2.0) mmol/L Calcium 9.0 (8.5-10.1) mg/dl Magnesium 1.5 L (1.8-2.4) mg/dl Total Bilirubin 0.3 (0.2-1) mg/dl AST 23 (15-37) U/L ALT 46 (12-78) U/L Alkaline Phosphatase 83 (45-117) U/L Total Protein 7.1 (6.4-8.2) gm/dl Albumin 3.5 (3.4-5.0) gm/dl Globulin 3.6 (2.5-4.0) gm/dl Albumin/Globulin Ratio 1.0 (0.9-2) Lipase 178 (73-393) U/L Urine Color Urine Appearance (Clear) Urine pH (4.5-7.5) Ur Specific [place] (1.000-1.030) Urine Protein (Negative) Urine Glucose (UA) (Negative) Urine Ketones (Negative) Urine Blood (Negative) Urine Nitrite (Negative) Urine Bilirubin (Negative) Urine Urobilinogen (Negative) Ur Leukocyte Esterase (Negative) COVID-19 Eval Order SARS-CoV-2, RNA, NAAT Medications Administered Current Inpatient Medications Hydromorphone HCl (Hydromorphone Inj 1 Mg/Ml Syringe) 1 mg IV Q30M PRN PRN Reason: Pain Stop: 02/18/21 14:48 Last Admin: 02/04/21 18:50 Dose: 1 mg Documented by: Miscellaneous Information (Piperacill/Tazobac Consult Active) 1 ea N/A UD PRN PRN Reason: Consult Stop: 03/06/21 14:48 Code Status & VTE Plan Code Status Full Supervising Physician Co-Signing Physician Notes Attending addendum: I have physically seen this patient, have supervised the medical residents activities, and agree with the H&P unless as otherwise noted. Assessment and Plan: Fistulous Crohn's disease/acute on chronic exacerbation- NPO Zosyn 4.5 g IV every 8 hours Zofran 4 mg IV every 6 hours as needed Hydrocortisone 100 mg IV every 8 hours due to recent prednisone taper Dilaudid 0.5 mg IV every 3 hours as needed moderate pain Dilaudid 1 mg IV every 3 hours as needed severe pain LR at high 20,000 mils per hour Consult gastroenterology Remaining orders and notations as noted Resident Activity Tracking Resident Involvement: Resident Care Provided Care Provided: Adult Hospital Medicine (1) Crohn's disease Digestive disease complication type: with fistula Gastrointestinal tract location: unspecified location Qualified Code(s): K50.913 - Crohn's disease, unspecified, with fistula (2) Leukocytosis Leukocytosis type: unspecified Qualified Code(s): D72.829 - Elevated white blood cell count, unspecified
--- NOTE | 2021-02-04 21:20 | Electrocardiogram Report ---
Test Reason : Blood Pressure : / mmHG Vent. Rate : 093 BPM Atrial Rate : 093 BPM P-R Int : 138 ms QRS Dur : 102 ms QT Int : 362 ms P-R-T Axes : 069 058 039 degrees QTc Int : 450 ms Normal sinus rhythm with sinus arrhythmia Normal ECG When compared with ECG of 28-DEC-2020 18:38, No significant change was found Confirmed by Clifton Haynes ([id number]) on 02/04/2021 9:19:58 PM Referred By: REFERRED SELF Confirmed By:Clifton Haynes
[2021-02-04] MEDS ORDERED: SODIUM SULFATE PO SCH (21:21)
[2021-02-04] MEDS ORDERED: MAGNESIUM SULFATE PO SCH (21:21)
[2021-02-04] MEDS ORDERED: POTASSIUM CHLORIDE PO SCH (21:21)
[2021-02-04] MEDS ORDERED: ONDANSETRON INJ 2 MG/ML 2 ML VIAL IV PRN (21:21)
[2021-02-04] MEDS ORDERED: oxyCODONE/APAP 7.5/325MG TAB PO PRN (21:21)
[2021-02-04] MEDS ORDERED: POLYETHYLENE (MIRALAX) 17 GM PACK PO PRN (21:21)
[2021-02-04] MEDS ORDERED: MoRPHine SULFATE 2 MG/ML CARP IV PRN (21:21)
[2021-02-04] MEDS ORDERED: [UNRECOGNIZED DRUG - OTHER] PO SCH (21:21)
[2021-02-04] MEDS ORDERED: LOPERAMIDE HCL 2 MG CAP PO PRN (21:27)
[2021-02-04] MEDS: LACTATED RINGER'S 1,000 ML IV SCH (22:19)
[2021-02-04] MEDS: PIPERACILLIN/TAZOBACTAM 3.375 GM in DEXTROSE 5% 100 ML IV SCH (22:19)
[2021-02-04] MEDS: GABAPENTIN 300 MG CAP PO SCH (22:23)
[2021-02-04] MEDS: ALPRAZolam 0.5 MG TABLET PO PRN (22:23)
[2021-02-04] MEDS: sulfaSALAzine 500 MG TABLET PO SCH (22:23)
[2021-02-04] MEDS ORDERED: HYDROCORTISONE SOD SUCCINATE 100 MG/2 ML VIAL IV SCH (23:15)
[2021-02-04] MEDS ORDERED: HYDROCORTISONE SOD 100 MG in SYRINGE 0 ML IV SCH (23:30)
[2021-02-04] MEDS: HYDROCORTISONE SOD 100 MG in SYRINGE 0 ML IV SCH (23:30)
[2021-02-05] MEDS: HYDROmorphone INJ 0.5 MG/0.5 ML SYR IV PRN ×3 (02:51→11:31)
[2021-02-05] MEDS: PIPERACILLIN/TAZOBACTAM 3.375 GM in DEXTROSE 5% 100 ML IV SCH ×2 (05:25→14:14)
[2021-02-05] MEDS: HYDROmorphone INJ 1 MG/ML SYRINGE IV PRN ×6 (06:18→23:32)
[2021-02-05 07:22] LABS: Basophils # (auto) 0.02 K/uL (0-0.2); Basophils % (auto) 0.1 %; Eosinophils # (auto) 0.03 K/uL (0-0.5); Eosinophils % (auto) 0.2 %; Hematocrit (blood only) 42.9 % (42-52); Immature Granulocytes # (auto) 0.05 K/uL (0.00-0.02); Immature Granulocytes % (auto) 0.3 %; Lymphocytes # (auto) 2.63 K/uL (1.2-3.4); Lymphocytes % (auto) 16.7 %; Mean Corpuscular Hemoglobin 28.7 pg (25-34); Mean Corpuscular Hgb Conc 32.6 g/dL (32-36); Mean Corpuscular Volume 88.1 fL (80-100); Mean Platelet Volume 10.1 fL (7.4-10.4); Monocytes # (auto) 0.41 K/uL (0.11-0.59); Monocytes % (auto) 2.6 %; Neutrophils # (auto) 12.59 K/uL (1.4-6.5); Neutrophils % (auto) 80.1 %; Platelet Count 388 K/uL (130-400); RDW Standard Deviation 47.8 fL (36.4-46.3); Red Blood Count 4.87 M/uL (4.7-6.1); White Blood Count 15.73 K/uL (4.8-10.8)
[2021-02-05 07:55] LABS: BUN Creatinine Ratio 13.8 (10-20); Calcium 9.4 mg/dl (8.5-10.1); Creatinine Clr Calc Pharmacy 92.1 ml/min; Est GFR (African American) 116.4; Est GFR (Non-African American) 100.4; Potassium 4.2 mmol/L (3.5-5.1)
[2021-02-05] MEDS: HYDROCORTISONE SOD 100 MG in SYRINGE 0 ML IV SCH ×2 (08:24→15:53)
[2021-02-05] MEDS ORDERED: LORATADINE 10 MG TAB PO SCH (09:00)
[2021-02-05] MEDS ORDERED: lisinopril 10 MG TAB PO SCH (09:00)
[2021-02-05] MEDS ORDERED: VITAMIN B COMPLEX TAB PO SCH (09:00)
[2021-02-05] MEDS: PANTOprazole 40 MG TAB PO SCH ×2 (11:01→20:01)
[2021-02-05] MEDS: sulfaSALAzine 500 MG TABLET PO SCH ×2 (11:01→17:00)
[2021-02-05] MEDS: GABAPENTIN 300 MG CAP PO SCH ×2 (11:01→20:01)
--- NOTE | 2021-02-05 12:34 | Ultrasound Report ---
US softtissue abdwall/lwr back HISTORY: 51 years-old Male Right abdominal wall to look for abscesses soft tissue swelling of the ri ght lower quadrant anterior abdominal wall COMPARISON: CT abdomen and pelvis 02/04/2021 TECHNIQUE: Multiple real-time sonographic images of the right lower quadrant abdominal wall were obta ined assessing grayscale appearance and color flow. FINDINGS: Dermal thickening with heterogeneous subcutaneous tissues noted with echogenic foci suggestive of sub cutaneous air. This includes a focal area of ill-defined margins measuring approximately 3.8 x 0.7 cm . No drainable fluid collection. Heterogeneity of the adjacent rectus sheath is also noted. IMPRESSION: Heterogeneity of the right lower quadrant abdominal wall redemonstrated correlating with the area of previously described enterocutaneous fistula. Heterogeneity and subcutaneous air is noted without drainable fluid collection to suggest abscess. Clinical follow-up recommended. ACT 112: Negative or not required by law. The above report was generated using voice recognition software. It may contain grammatical, syntax o r spelling errors. Electronically signed by: Kulwant Caballero M.D. 02/05/2021 12:32 PM
[2021-02-05] MEDS: LACTATED RINGER'S 1,000 ML IV SCH ×2 (14:10→14:11)
[2021-02-05] MEDS: ALPRAZolam 0.5 MG TABLET PO PRN ×2 (14:18→23:36)
--- NOTE | 2021-02-05 15:55 | Hospitalist Progress Note ---
Date of Service February 05, 2021 Assessment & Plan (1) Abdominal wall abscess: CT a/p on 02/04 showed abdominal wall abscess. The patient reports one of his fistula areas drained and now it is much better. Ultrasound on 02/05 indicates resolution. - Switch to oral Augmentin with plan to discharge with 7-10 days - Follow abdominal culture from ED (2) Crohn's disease: Complicated course. Plan for colonoscopy on 02/09/[address] Steward. - Switch to prednisone. He is on some taper, but the details are not available. - GI consulted - Pending - Continue sulfasalazine (3) Benign hypertension: BP today is 130/80. - Continue home lisinopril as needed (4) Anxiety disorder: Gets Xanax 1 mg PO TID PRN from [facility] in [place], [place]. - Continue home Xanax PRN (5) Opioid dependence: Get chronic opioids from PCP. - Taper opioids to home dose as able. (6) DVT prophylaxis: SCDs - Hold heparin given likelihood of GI bleeding with Crohn's Admission and Anticipated Discharge Date Admission Date: February 04, 2021 Subjective With continued pain in the abdomen, but now feels better. Reports no fevers/chills, chest pain, shortness of breath, nausea, or vomiting. Physical Exam Constitutional: WD/WN, vitals as above Eyes: EOM intact bilaterally; no conjunctival abnormality ENMT: external ear and nose normal, oropharynx normal Neck: trachea midline, no thyromegaly normal visual inspection Respiratory: normal respiratory effort, lungs clear to auscultation no respiratory distress Cardiovascular: RRR, no murmur, no edema Gastrointestinal (Abdomen): Inspection/Auscultation: abdomen normal to inspection and normal bowel sounds; abdomen not distended Percussion/Palpation: + abdomen tender and abdomen soft; no guarding and abdomen not rigid Musculoskeletal: no cyanosis or clubbing, extremities motor strength 5/5 Skin: no rashes, warm and dry Neurologic: moves all extremities and awake Psychiatric: Orientation: alert, oriented to person and cooperative Results & Data Results & Data ([facility]) Vital Signs (Past 12 Hours) Vital Signs Temp Pulse Resp BP Pulse Ox 02/05/21 08:08 37.1 C 76 18 128/83 95 PG Care Time/CCT Total # of Minutes Spent Total Time Spent with Patient: Total time spent is greater than 50% in coordination of care (as documented) at patient's floor/unit and/or counseling patient: Coding Level of Care Code 27135 Subseq Hosp Care Lvl 3 Diagnoses Abdominal wall abscess L02.211 Crohn's disease K50.913 Digestive disease complication type: with fistula Gastrointestinal tract location: unspecified location Benign hypertension I10 Anxiety disorder F41.9 Opioid dependence F11.20 DVT prophylaxis Z29.9 (1) Crohn's disease Digestive disease complication type: with fistula Gastrointestinal tract location: unspecified location Qualified Code(s): K50.913 - Crohn's disease, unspecified, with fistula
[2021-02-05] MEDS: AMOXICILLIN/CLAVULANATE 875 MG TAB PO SCH (16:54)
[2021-02-05] MEDS: oxyCODONE/ACETAMINOPHEN 5mg/325mg TAB PO PRN ×2 (17:01→21:26)
[2021-02-06] MEDS: oxyCODONE/ACETAMINOPHEN 5mg/325mg TAB PO PRN ×4 (01:30→16:13)
[2021-02-06] MEDS: HYDROmorphone INJ 1 MG/ML SYRINGE IV PRN ×3 (05:03→14:06)
--- NOTE | 2021-02-06 05:45 | Billing Data ---
Date of Service February 06, 2021 Coding Level of Care Code 03544 Initial Inpt Care Lvl 2
[2021-02-06 06:47] LABS: Hematocrit (blood only) 36.3 % (42-52); Hemoglobin 11.9 g/dL (14.0-18.0); Mean Corpuscular Hgb Conc 32.8 g/dL (32-36); Mean Corpuscular Volume 88.3 fL (80-100); Platelet Count 312 K/uL (130-400); RDW Coefficient of Variation 14.8 % (11.5-14.5); RDW Standard Deviation 47.7 fL (36.4-46.3); Red Blood Count 4.11 M/uL (4.7-6.1); White Blood Count 12.18 K/uL (4.8-10.8)
[2021-02-06 07:15] LABS: BUN Creatinine Ratio 16.6 (10-20); Calcium 8.8 mg/dl (8.5-10.1); Creatinine Clr Calc Pharmacy 112.3 ml/min; Est GFR (African American) 126.2; Est GFR (Non-African American) 108.9; Magnesium 1.9 mg/dl (1.8-2.4); Potassium 3.7 mmol/L (3.5-5.1)
[2021-02-06] MEDS: sulfaSALAzine 500 MG TABLET PO SCH (08:55)
[2021-02-06] MEDS: PANTOprazole 40 MG TAB PO SCH (08:55)
[2021-02-06] MEDS: GABAPENTIN 300 MG CAP PO SCH (08:55)
[2021-02-06] MEDS: AMOXICILLIN/CLAVULANATE 875 MG TAB PO SCH (08:55)
[2021-02-06] MEDS ORDERED: predniSONE 5 MG TAB PO SCH (09:00)
--- NOTE | 2021-02-06 10:16 | Gastrointestinal Consultation ---
Date of Consultation February 06, 2021 Assessment & Plan (1) Crohn's disease: 51 yo male with complicated fistulizing and inflammatory Crohns disease with recent perianal fistula and abd wall abscess admitted with increase in abd pain. Imaging show active IBD and resolution of abd wall abscess. - Agree with IV steroids. - Please check stool for C diff given recent abx as outpatient - Patient already scheduled for outpatient colonoscopy to stage disease on 02/09. Dr. Steward will decide on possible change of timing on Sunday. (2) Fistula: (3) Abdominal wall abscess: History of Present Illness Reason for Consultation: abd pain crohns Attending Physician: Greg Smith MD History of Present Illness 51 yo male with complicated fistulizing Crohns disease followed by Tiki Benedict. He has a history of severe ileitis s/p resection and recently developed perianal fistula and an abdominal wall abscess which required I&D, a course of cipro and flagyl (completed about 2 weeks ago) and seton placement. In the process of starting him on crohn's directed therapy he was noted to have a +quant gold and was diagnosed with latent TB. Infectious disease following and managing this. There are plans for him to undergo a colonoscopy on 02/09 with to stage his disease and then likely start him on Entyvio per Tiki Benedict's outpatient notes. He was just see in the office there on 01/27. He was on a prednisone taper as an outpatient and was started on IV steroids here after presenting with worsening abd pain for the last week. Also complaine dof fevers, chille, nause and vomiting and diarrhea at home. Leukocytosis on admission. US showed resolution of abd wall abscess. Started on IV abx on ad . Allergies Allergy/AdvReac Type Severity Reaction Status Date / Time infliximab Allergy Severe TONGUE Verified 02/04/21 16:52 SWELLING codeine Allergy Mild Rash Verified 02/04/21 16:52 Home Medications Medication Instructions Recorded Confirmed Type alprazolam 1 mg PO TID PRN 05/18/19 02/04/21 History lisinopril 10 mg tablet 10 mg PO QAM #90 tab 08/10/20 02/04/21 Rx loperamide 2 mg tablet 2 mg PO Q6H PRN #60 tab 08/10/20 02/04/21 Rx loratadine 10 mg tablet 10 mg PO QAM #90 tab 08/10/20 02/04/21 Rx vitamin B complex [B 1 tab PO QAM 12/10/20 02/04/21 History Complex-Vitamin B12] nystatin 100,000 unit/mL oral 5 ml PO QID #250 ml 12/17/20 02/04/21 Rx suspension cholecalciferol (vitamin D3) 50,000 unit PO WK 12/19/20 02/04/21 History omeprazole 20 mg capsule,delayed 20 mg PO BID #180 cap 01/10/21 02/04/21 Rx release oxycodone-acetaminophen 7.5 mg-325 1 tab PO Q8H PRN #90 tab 01/13/21 02/04/21 Rx mg tablet blood glucose control, low #1 ea 01/20/21 02/04/21 Rx blood sugar diagnostic #200 ea 01/20/21 02/04/21 Rx blood-glucose meter #1 ea 01/20/21 02/04/21 Rx lancets 30 gauge #200 ea 01/20/21 02/04/21 Rx gabapentin 300 mg capsule 300 mg PO .COMPLEX #90 cap 01/27/21 02/04/21 Rx sodium sulf 1.479 gram-potas 24 tab PO .COMPLEX #24 tab 01/27/21 02/04/21 Rx chloride 0.188 gram-magnesium sulf tablet sulfasalazine 500 mg tablet 500 mg PO BID #180 tab 01/27/21 02/04/21 Rx Patient History Medical History Anemia chronic Anxiety Cardiac murmur no further details; no murmur noted per [facility] ER evaluation 05/18/19* Crohns disease GERD (gastroesophageal reflux disease) 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 Hypertension Medical marijuana use Opioid dependence Perianal fistula due to Crohn's disease Throat pain Tongue pain Surgical History Fistula anal fistula x2 with repair H/O skin graft RIGHT LEG History of bowel resection X2 TOTAL History of colonoscopy History of esophagogastroduodenoscopy (EGD) History of incision and drainage (~12/2020) perianal fistula and abdominal wall abcess with seton placement @ [facility] History of open reduction and internal fixation (ORIF) procedure LEFT ANKLE History of surgery Salivary Gland - 2018, Sublingual Gland - 2019 History of tonsillectomy Family History Mother Family hx of colon cancer Stroke Family/Other Family history of diabetes mellitus Other Allergies Cancer Colorectal cancer Hypertension No family history of adverse response to anesthesia No family history of bleeding disorder Denies family history of Ovarian cancer Prostate cancer Myocardial infarction Breast cancer Social History Smoking Status: Current some day smoker Tobacco Type: Cigarettes Cigarettes Per Day: 2 cigarettes per day at most; Second Hand Exposure: No; Do You Dip or Chew Tobacco: No (Hx of chewing tobacco; quit 5 years ago); Tobacco Cessation Education Requested by Patient: No Hx Alcohol Use: No Hx Substance Use: No Preferred Language: Syriac Communication Ability: Effective Visual Impairment: No Limitations Hearing Ability: Normal 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 Required: No Beliefs That Will Affect Care: None marital status: Current Living Situation: Spouse current occupational status: disabled Other Information That Helps Us Care for You: No Feels Safe at Home: Yes Safety Concerns: Feels Safe At This Time Childhood Exposure to Second-Hand Smoke: Yes Dental Care, Regularly: Yes Physical Activity Frequency: Daily Seatbelt Use: always Sunscreen Use: No Assistive Devices: None Review of Systems Review of Systems: All systems reviewed & are unremarkable except as noted in HPI & below Physical Exam Constitutional: WD/WN, vitals as above Eyes: PERRL, conjunctivae normal, anicteric sclerae Neck: trachea midline, no thyromegaly Respiratory: normal respiratory effort, lungs clear to auscultation Cardiovascular: RRR, no murmur, no edema Gastrointestinal (Abdomen): Percussion/Palpation: + abdomen tender area of drainage on right abd wall Musculoskeletal: no cyanosis or clubbing, extremities motor strength 5/5 Neurologic: CN's II-XI intact bilaterally Results & Data ([facility]) Vital Signs (Past 12 Hours) Vital Signs Temp Pulse Resp BP Pulse Ox 02/06/21 08:09 36.8 C 83 18 132/82 93 02/05/21 22:46 37.3 C 65 18 121/81 95 (1) Crohn's disease Digestive disease complication type: with fistula Gastrointestinal tract location: unspecified location Qualified Code(s): K50.913 - Crohn's disease, unspecified, with fistula
[2021-02-06] MEDS ORDERED: HYDROmorphone INJ 0.5 MG/0.5 ML SYR IV STA (10:38)
--- NOTE | 2021-02-06 11:29 | Discharge Summary ---
Date of Service February 06, 2021 Principal Diagnosis Enterocutaneous fistula, abdominal wall abscess Discharge Exam Constitutional WD/WN, vitals as above Eyes EOM intact bilaterally; no conjunctival abnormality ENMT external ear and nose normal, oropharynx normal Neck trachea midline, no thyromegaly normal visual inspection Respiratory normal respiratory effort, lungs clear to auscultation no respiratory distress Cardiovascular RRR, no murmur, no edema Gastrointestinal (Abdomen) Inspection/Auscultation: abdomen normal to inspection and normal bowel sounds; abdomen not distended Percussion/Palpation: + abdomen tender and abdomen soft; no guarding and abdomen not rigid Musculoskeletal no cyanosis or clubbing, extremities motor strength 5/5 Skin no rashes, warm and dry Neurologic moves all extremities and awake Psychiatric Orientation: alert, oriented to person and cooperative Discharge Data Allergies Allergy/AdvReac Type Severity Reaction Status Date / Time infliximab Allergy Severe TONGUE Verified 02/04/21 16:52 SWELLING codeine Allergy Mild Rash Verified 02/04/21 16:52 Consultations 02/04/21 18:54 ED Decision to Admit Stat 02/04/21 21:21 Consult Gastroenterology Routine Ordered Studies 02/04/21 14:52 CT abd pelvis oral and IV con Stat 02/05/21 10:22 US softtissue abdwall/lwr back Urgent Hospital Course (1) Abdominal wall abscess: CT a/p on 02/04 showed abdominal wall abscess. The patient reports one of his fistula areas drained and now it is much better. Ultrasound on 02/05 indicates resolution. - Switched to oral Augmentin with plan to discharge with 7-10 days; however, he felt discharge was worse, so instead of discharge, he will be transferred to [facility]. - Abdominal culture from ED on 02/04 grew mixed skin emily. (2) Crohn's disease: Complicated course. Plan for colonoscopy on 02/09/[address] Woodrow Steward at [facility]. - Continue sulfasalazine - Initially on stress-dose steroids. Switched to prednisone 10 mg as he reports he had 1 week of 10 mg dosing before he was done with his prednisone taper. (3) Benign hypertension: BP today is 130/80. - Continue home lisinopril as needed (not presently on) (4) Anxiety disorder: Gets Xanax 1 mg PO TID PRN from [facility] in [place], [place]. - Continue home Xanax PRN (5) Opioid dependence: Get chronic opioids from PCP. - I had some concern for opioid abuse in the hospital. While he has a good reason for pain, he was consistently comfortable-appearing and ambulating around the room, chatting with his room mate, or sleeping. Despite this, he asked for increases in his Dilaudid IV in every discussion. - Consider Pain Management consult at [facility]. (6) DVT prophylaxis: SCDs - Hold heparin given likelihood of GI bleeding with Crohn's Total Time Total Time Spent Total Time Spent (In Minutes): 35 Discharge Plan Discharge Items Patient Disposition: Transfer Acute Care Hospital Reason For Visit: ACUTE ON CHRONIC EXACERATION OF CROHNS DISEASE CAU Discharge Diagnosis: Enterocutaneous fistula, abdominal wall abscess Condition on Discharge: Fair Activity: Resume your previous activity Non-emergency contact: Primary Care Provider and Surgeon Call non-emergency contact if: your symptoms worsen Follow-up/Referrals: Mahad Smith, [Primary Care Provider] - Diet: Regular Addtl Attending Provider Instructions: Mr. Horton was admitted for an abdominal wall abscess after having surgery at [facility] in 12/2020. The abscess appears to have spontaneously drained as the patient reported resolution of the large lump along with significant discharge. However, the patient reported feculent & green discharge the following afternoon. Discussion was had with Dr. Craig who felt the patient would benefit from surgical evaluation at [facility]. He was feeling better on Zosyn with an improving WBC of 12 today. He reports he was down to prednisone 10 mg around the time of admission with 1 week of prednisone 10 mg before being done with his taper. He was hemodynamically stable, so I did not see the need for stress dose steroids. Pending Studies at Discharge: No Stand-Alone Forms: My [facility] Skilled Items Patient informed of condition?: No DNR: No Discharge Level of Care: Other Communicable Disease: No Discharge Prognosis: Stable Lines: Peripheral IV Urinary Catheter: No Medications and DC Order Prescriptions: Continued gabapentin 300 mg capsule 300 mg PO .COMPLEX Qty: 90 RF: 2 nystatin 100,000 unit/mL suspension 5 ml PO QID Qty: 250 RF: 0 omeprazole 20 mg capsule,delayed release(DR/EC) 20 mg PO BID Qty: 180 RF: 0 oxycodone-acetaminophen [Percocet] 7.5-325 mg tablet 1 tab PO Q8H PRN (Reason: Pain) Qty: 90 RF: 0 (DME) blood-glucose meter [True Metrix Air Glucose Meter] Kit See Rx Instructions .ROUTE .MEDSUPPLY Qty: 1 RF: 0 (DME) True Metrix Glucose Test Strip Strip See Rx Instructions .ROUTE .MEDSUPPLY Qty: 200 RF: 1 (DME) lancets [TRUEplus Lancets] 30 gauge misc See Rx Instructions .ROUTE .MEDSUPPLY Qty: 200 RF: 1 (DME) True Metrix Level 1 Solution See Rx Instructions .ROUTE .MEDSUPPLY Qty: 1 RF: 0 sulfasalazine 500 mg tablet 500 mg PO BID Qty: 180 RF: 1 lisinopril 10 mg tablet 10 mg PO QAM Qty: 90 RF: 3 loratadine [Claritin] 10 mg tablet 10 mg PO QAM Qty: 90 RF: 3 loperamide [Imodium A-D] 2 mg tablet 2 mg PO Q6H PRN (Reason: Diarrhea) Qty: 60 RF: 5 Sutab 1.479-0.188 gram tablet 24 tab PO .COMPLEX Qty: 24 RF: 0 alprazolam 1 mg tablet 1 mg PO TID PRN (Reason: Anxiety) RF: 0 cholecalciferol (vitamin D3) 1,250 mcg (50,000 unit) capsule 50,000 unit PO WK RF: 0 vitamin B complex [B Complex-Vitamin B12] Tablet 1 tab PO QAM RF: 0 Discharge Orders: Discharge Order (Routine); Ordered 02/06/21 Ordered By: Greg Smith Admission Data Admit Date/Time: 02/04/21 20:07 Attending Provider: Greg Smith Admit Provider: Cody Baum I. Primary Care Provider: Mahad Smith Other Providers: Woodrow Steward ; Tiki Benedict ; Jahaira Kay ; Evan Cruz ; Greg Smith Coding Level of Care Code D/C Day Management >30 mins Diagnoses Abdominal wall abscess L02.211 Crohn's disease K50.913 Digestive disease complication type: with fistula Gastrointestinal tract location: unspecified location Benign hypertension I10 Anxiety disorder F41.9 Opioid dependence F11.20 DVT prophylaxis Z29.9
[2021-02-06] MEDS: ALPRAZolam 0.5 MG TABLET PO PRN (16:14)
[2021-02-11] MEDS ORDERED: ERGOCALCIFEROL 50,000 UNITS 1250 MCG CAP PO SCH (09:00)
== END 2021-02-06 17:37 | disposition short-term general hospital (02) | DRG 386 ==
LOC: ED 13:44 → SUATTDRO 20:07 → 3N 20:07 → INTOOBSV 20:07 → 3N 20:33

== ENCOUNTER 2023-04-24 11:15 | Observation (INO) ==
[2023-04-24] MEDS ORDERED: SODIUM CHLORIDE 0.9% 1000ML 1,000 ML IV ONE (11:55)
[2023-04-24] MEDS ORDERED: ONDANSETRON INJ 2 MG/ML 2 ML VIAL IV STA (11:55)
[2023-04-24] MEDS ORDERED: MoRPHine SULFATE 4 MG/ML 1 ML CARP\\VIAL IV STA (11:55)
--- NOTE | 2023-04-24 12:03 | Emergency Department Note ---
History of Present Illness General Chief complaint: Abdominal Pain Stated complaint: CHRONS DISEASE,ABDOMINAL PAIN Time Seen by Provider: 04/24/23 11:37 History of Present Illness Maximum Pain Intensity: 10 53-year-old male with past medical history significant for Crohn's, hypertension, hyperlipidemia who presents to the emergency department for evaluation of abdominal pain. Patient states he has been having intermittent diffuse abdominal pain for the last 2 months that has progressively gotten worse. It seems to be mostly located in the left upper quadrant and occasionally radiates to his back. There are no exacerbating or alleviating factors. He reports about 10 months ago he developed a fistula requiring surgical intervention as well as partial colectomy. His colostomy bag has since been reversed. He states his abdominal pain feels similar to past episodes. He reports associated diarrhea with noted mucus in stool as well as intermittent bright red blood in stool. He has been vomiting intermittently as well. He reports chills and subjective fevers over the last few days. Denies hematemesis or melena. He is on sulfasalazine for his Crohn's. He denies chest pain, s hortness of breath, dizziness/lightheadedness, constipation, urinary symptoms. He has not taken anything for symptoms. Home Medications Medication Instructions Recorded Confirmed Type alprazolam 1 mg tablet 1 mg PO TID 05/18/19 04/24/23 History sulfasalazine 500 mg tablet 500 mg PO BID #180 tabs 01/27/21 04/24/23 Rx acetaminophen 500 mg tablet 1,000 mg PO Q6H PRN Pain 04/07/21 04/24/23 History (Tylenol Extra Strength) ondansetron HCl 4 mg tablet 4 mg PO Q6H PRN nausea and 04/14/21 04/24/23 Rx (Zofran) vomiting #6 tabs vedolizumab 300 mg intravenous 300 mg IV Q8WK #1 ea 04/22/21 04/24/23 Rx solution (Entyvio) lisinopril 10 mg tablet 10 mg PO QAM #90 tabs 05/20/21 04/24/23 Rx cholecalciferol (vitamin D3) 1,250 50,000 unit PO WK #12 caps 08/11/21 04/24/23 Rx mcg (50,000 unit) capsule loperamide 2 mg tablet (Imodium 2 mg PO Q6H PRN Diarrhea #60 tabs 08/11/21 04/24/23 Rx A-D) loratadine 10 mg tablet (Claritin) 10 mg PO QAM #90 tabs 08/11/21 04/24/23 Rx vitamin B complex (B 1 tab PO QAM #90 tabs 12/01/21 04/24/23 Rx Complex-Vitamin B12 tablet) MULTIDAY VITAMIN QC See Rx Instructions .Route 12/02/21 04/24/23 Rx .COMPLEX #90 tabs magnesium oxide 400 mg PO BID #20 caps 12/04/22 04/24/23 Rx famotidine-Ca carb-mag hydrox 10 0 tab PO DAILY 04/24/23 04/24/23 History mg-800 mg-165 mg chewable tablet (Pepcid Complete) omega 7-dis-muo-fish oil 1,000 mg 1 cap PO DAILY 04/24/23 04/24/23 History (120 mg-180 mg) capsule (Fish Oil) oxycodone 5 mg tablet 0 mg PO Q6H PRN pain 04/24/23 04/24/23 History oxycodone-acetaminophen 5 mg-325 0 tab PO Q8H PRN pain 04/24/23 04/24/23 History mg tablet (Percocet) quetiapine 50 mg tablet 50 mg PO HS 04/24/23 04/24/23 History Allergies Allergy/AdvReac Type Severity Reaction Status Date / Time infliximab Allergy Severe TONGUE Verified 11/19/21 13:03 SWELLING, hives ciprofloxacin [From Cipro] Allergy Intermediate Knee Verified 11/19/21 13:03 Swelling metronidazole [From Flagyl] Allergy Intermediate Knee Verified 11/19/21 13:03 Swelling Penicillins Allergy Intermediate KNEE Unverified 04/24/23 15:58 SWELLING codeine Allergy Mild Rash Verified 11/19/21 13:03 doxycycline Allergy Unknown Unknown Unverified 04/24/23 15:58 Past Med/Surg History Medical History Anemia chronic Anxiety Cardiac murmur no further details; no murmur noted per [facility] ER evaluation 05/18/19* Crohns disease GERD (gastroesophageal reflux disease) 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 Hypertension Lyme disease diagnosed 03/2021--currently on antibiotics Medical marijuana use Opioid dependence Perianal fistula due to Crohn's disease Throat pain Tongue pain Surgical History Fistula anal fistula x2 with repair--currently has [address] H/O skin graft RIGHT LEG History of bowel resection X2 TOTAL History of colonoscopy History of esophagogastroduodenoscopy (EGD) History of incision and drainage (~12/2020) perianal fistula and abdominal wall abcess with seton placement @ [facility] History of open reduction and internal fixation (ORIF) procedure LEFT ANKLE History of surgery Salivary Gland - 2018, Sublingual Gland - 2019 History of tonsillectomy Family History Mother Family hx of colon cancer Stroke Family/Other Family history of diabetes mellitus Other Allergies Cancer Colorectal cancer Hypertension No family history of adverse response to anesthesia No family history of bleeding disorder Denies family history of Ovarian cancer Prostate cancer Myocardial infarction Breast cancer Social History Smoking Status: Current every day smoker Tobacco Type: Cigarettes Age Started Using Tobacco: 14; Age Quit Using Tobacco: 51; Cigarettes Per Day: 2 cigarettes per day at most; Second Hand Exposure: No; Do You Dip or Chew Tobacco: No (used to ); Hx Alcohol Use: No Hx Substance Use: Yes (medical marijuana) Prescribed Medications: Marijuana Last Used Substance Other:: last used 1 month ago Preferred Language: Persian Communication Ability: Effective Visual Impairment: No Limitations Hearing Ability: Normal Sld Educational Aide Required: No Beliefs That Will Affect Care: None marital status: Current Living Situation: Spouse current occupational status: disabled Feels Safe at Home: Yes Childhood Exposure to Second-Hand Smoke: Yes Diet: regular Dental Care, Regularly: Yes Physical Activity Frequency: Does not Exercise Seatbelt Use: always Sunscreen Use: No Assistive Devices: None Physical Exam Vital Signs Vital Signs - 24 hr 04/24/23 11:17 04/24/23 12:23 04/24/23 14:00 Temperature 36.7 C Temperature Source Temporal Artery Scan Pulse Rate 106 H Pulse Rate [Right Finger] 86 Pulse Rhythm [Right Finger] Regular Pulse Strength [Right Finger] Normal Respiratory Rate 20 18 Respiratory Effort / Characteristics Non-Labored Spontaneous Non-Labored Respiratory Depth Normal Normal Respiratory Pattern Regular Blood Pressure 145/95 H Blood Pressure [Right Arm] 129/102 H Blood Pressure Mean 111 Blood Pressure Mean [Right Arm] 111 Blood Pressure Position [Right Arm] Lying Pulse Oximetry 98 99 Oxygen Delivery Method Room Air Room Air Room Air Sepsis Recent Fever Within 48 Hours No Sepsis New/Unexplained Change in Mental Status N/A Sepsis Action Taken by Nursing No Action Required Constitutional: alert and oriented x3. no acute distress. HEENT: normocephalic, atraumatic. normal conjunctiva.PERRLA. EOM's grossly intact. Neck: neck is supple, nontender. Respiratory: lungs are clear to auscultation without wheezes, rhonchi, or rales bilaterally. equal chest rise. normal respiratory effort, no accessory muscle use. Cardiovascular: normal heart sounds without murmur. regular rate and rhythm. GI: abdomen is soft, nondistended. Diffuse abdominal tenderness, worse in the left upper quadrant. No palpable masses. No rebound tenderness or guarding. No CVA tenderness MSK: Moves all 4 extremities spontaneously Peripheral vascular: extremities warm and well perfused Psych:appropriate mood and affect. Course Administered Medications Discontinued Medications Alprazolam (Alprazolam 0.5 Mg Tablet) 1 mg PO NOW STA Stop: 04/24/23 14:18 Last Admin: 04/24/23 14:31 Dose: 1 mg Documented By: MANSI Hydromorphone HCl (Hydromorphone Inj 1 Mg/Ml Syringe) 1 mg IV NOW STA Stop: 04/24/23 13:53 Last Admin: 04/24/23 13:58 Dose: 1 mg Documented By: MANSI Hydromorphone HCl (Hydromorphone Inj 1 Mg/Ml Syringe) 1 mg IV NOW STA Stop: 04/24/23 15:29 Last Admin: 04/24/23 15:52 Dose: 1 mg Documented By: MANSI Sodium Chloride (Nss 1000ml) 1,000 mls @ 999 mls/hr IV .Q1H1M ONE Stop: 04/24/23 12:55 Last Infusion: 04/24/23 13:46 Dose: 0 mls/hr Documented By: Admin: 04/24/23 12:08 Dose: 999 mls/hr Documented By: MANSI Ioversol (Optiray 320 100ml) 83 ml IV ONCE ONE Stop: 04/24/23 13:17 Last Admin: 04/24/23 13:19 Dose: 83 ml Documented By: RYAN Morphine Sulfate (Morphine Sulfate 4 Mg/Ml 1 Ml Carp\\Vial) 4 mg IV NOW STA Stop: 04/24/23 11:56 Last Admin: 04/24/23 12:07 Dose: 4 mg Documented By: AP Ondansetron HCl (Ondansetron Inj 2 Mg/Ml 2 Ml Vial) 4 mg IV NOW STA Stop: 04/24/23 11:56 Last Admin: 04/24/23 12:07 Dose: 4 mg Documented By: AP Medical Decision Making Differential Diagnosis SBO, crohn's flare, gastroenteritis, fistula, perforation, abscess, mesenteric ischemia, UTI, diverticulitis, pancreatitis, as well as other pathologies Laboratory Data Attestation: I reviewed the patient's lab results. 04/24/23 11:41 04/24/23 11:41 Lab Results 04/24/23 04/24/23 04/24/23 Range/Units 11:41 11:41 11:41 WBC 10.67 (4.8-10.8) K/ul RBC 4.14 L (4.70-6.10) M/uL Hgb 11.5 L (14.0-18.0) g/dl Hct 35.3 L (42.0-52.0) % MCV 85.3 (80.0-100.0) fL MCH 27.8 (25.0-34.0) pg MCHC 32.6 (32.0-36.0) g/dL RDW Std Deviation 46.5 H (36.4-46.3) fL RDW Coeff of Juancarlos 14.9 H (11.5-14.5) % Plt Count 302 (130-400) K/uL MPV 9.9 (9.4-12.4) fL Immature Gran % (Auto) 0.4 % Neut % (Auto) 79.6 % Lymph % (Auto) 14.0 % Johnston % (Auto) 4.1 % Eos % (Auto) 1.4 % Baso % (Auto) 0.5 % Neut # (Auto) 8.50 H (1.40-6.50) K/uL Lymph # (Auto) 1.49 (1.2-3.4) K/uL Johnston # (Auto) 0.44 (0.11-0.59) K/uL Eos # (Auto) 0.15 (0-0.50) K/uL Baso # (Auto) 0.05 (0-0.2) K/uL Immature Gran # (Auto) 0.04 (0.01-0.20) K/uL ESR 48 H (0-20) mm/hr Sodium 137 (136-145) mmol/L Potassium 4.0 (3.5-5.1) mmol/L Chloride 105 (98-107) mmol/L Carbon Dioxide 25 (21-32) mmol/L Anion Gap 7 (3-11) BUN 18 (6-23) mg/dl Creatinine 0.88 (0.6-1.4) mg/dl Est Cr Clr Drug Dosing 85.8 ml/min Est GFR ( Amer) 115.3 ml/min Est GFR (Non-Af Amer) 99.5 ml/min BUN/Creatinine Ratio 20.5 H (10-20) Glucose 90 (70-99(Fasting)) mg/dl Lactate (0.4-2.0) mmol/L Calcium 9.3 (8.6-10.3) mg/dl Total Bilirubin 0.2 (0.2-1.0) mg/dl AST 17 (13-39) U/L ALT 27 (7-52) U/L Alkaline Phosphatase 78 (34-104) U/L C-Reactive Protein 1.67 H (0-0.5) mg/dl Total Protein 7.1 (6.0-8.3) gm/dl Albumin 4.0 (3.4-5.0) gm/dl Globulin 3.1 (2.5-4.0) gm/dl Albumin/Globulin Ratio 1.3 (0.9-2) Lipase 32 (11-82) U/L Procalcitonin (0-0.5) ng/ml SARS-CoV-2, RNA, NAAT (NEGATIVE) 04/24/23 04/24/23 04/24/23 Range/Units 11:41 11:56 12:10 WBC (4.8-10.8) K/ul RBC (4.70-6.10) M/uL Hgb (14.0-18.0) g/dl Hct (42.0-52.0) % MCV (80.0-100.0) fL MCH (25.0-34.0) pg MCHC (32.0-36.0) g/dL RDW Std Deviation (36.4-46.3) fL RDW Coeff of Juancarlos (11.5-14.5) % Plt Count (130-400) K/uL MPV (9.4-12.4) fL Immature Gran % (Auto) % Neut % (Auto) % Lymph % (Auto) % Johnston % (Auto) % Eos % (Auto) % Baso % (Auto) % Neut # (Auto) (1.40-6.50) K/uL Lymph # (Auto) (1.2-3.4) K/uL Johnston # (Auto) (0.11-0.59) K/uL Eos # (Auto) (0-0.50) K/uL Baso # (Auto) (0-0.2) K/uL Immature Gran # (Auto) (0.01-0.20) K/uL ESR (0-20) mm/hr Sodium (136-145) mmol/L Potassium (3.5-5.1) mmol/L Chloride (98-107) mmol/L Carbon Dioxide (21-32) mmol/L Anion Gap (3-11) BUN (6-23) mg/dl Creatinine (0.6-1.4) mg/dl Est Cr Clr Drug Dosing ml/min Est GFR ( Amer) ml/min Est GFR (Non-Af Amer) ml/min BUN/Creatinine Ratio (10-20) Glucose (70-99(Fasting)) mg/dl Lactate 0.8 (0.4-2.0) mmol/L Calcium (8.6-10.3) mg/dl Total Bilirubin (0.2-1.0) mg/dl AST (13-39) U/L ALT (7-52) U/L Alkaline Phosphatase (34-104) U/L C-Reactive Protein (0-0.5) mg/dl Total Protein (6.0-8.3) gm/dl Albumin (3.4-5.0) gm/dl Globulin (2.5-4.0) gm/dl Albumin/Globulin Ratio (0.9-2) Lipase (11-82) U/L Procalcitonin 0.07 (0-0.5) ng/ml SARS-CoV-2, RNA, NAAT NEGATIVE (NEGATIVE) Imaging Data Radiologist's Impression: Abdomen/Pelvis CT 04/24/23 11:56 CT SCAN OF THE ABDOMEN AND PELVIS WITH IV CONTRAST CLINICAL HISTORY: Left upper quadrant abdominal pain. COMPARISON STUDY: Abdominal CT dated 12/03/2022. TECHNIQUE: Following the IV administration of 83 cc of Optiray 320, CT scan of the abdomen and pelvis is performed from the lung bases to the proximal femora. Images are reviewed in the axial, sagittal, and coronal planes. IV contrast was administered without complication. A dose lowering technique was utilized adhering to the principles of ALARA. CT DOSE: 462.40 mGy.cm FINDINGS: Lung bases: The heart is normal in size and without pericardial effusion. A calcified granuloma is seen in the right lower lobe. The lung bases are otherwise clear. A small fat-containing Bochdalek hernia is noted on the left. A peripherally calcified 3 cm fat attenuation structure in the left cardiophrenic angle is unchanged. Liver: The contrast-enhanced liver is normal in size, contour, and attenuation. There is no intrahepatic biliary ductal dilatation. The hepatic veins and portal veins are patent. Gallbladder: Unremarkable. Spleen: Normal in size and attenuation. Pancreas: Unremarkable. Adrenal glands: A 19 mm right adrenal adenoma is unchanged. The left adrenal gland is normal in appearance. Kidneys: The contrast enhanced kidneys are normal in size and without hydronephrosis. The kidneys enhance symmetrically. Abdominal vasculature: The abdominal aorta is normal in course and caliber noting mild atherosclerotic calcification. Bowel: There is postsurgical change from distal ilial resection with ileocolic anastomosis. No bowel obstruction is identified. Moderate fecal retention is present through out the colon. There is a long segment of thick-walled or hyperemic distal small bowel. This extends to the ileocolic anastomosis and favors active Crohn's disease. There is no CT evidence of stricture or abscess. Peritoneum: There is no intraperitoneal free air or abdominal ascites. Lymphadenopathy: Prominent mesenteric lymph nodes are likely reactive. Pelvic viscera: The bladder, prostate, and seminal vesicles are normal as visualized. A perianal Seton is in place. This is similar to previous. A 2.5 x 1.0 cm gas and fluid containing right perianal collection is seen on image #331. This extends into the ischioanal tissues and approximates the anus at the 6:00 position. Skeletal structures: Sclerotic changes noted in the sacroiliac joints. A 12 mm bone island is again seen in the left iliac wing. No lytic or blastic lesions are seen. Soft tissues: The patient is cachectic. IMPRESSION: 1. There is postsurgical change from distal ileal resection with ileocolic anastomosis. No bowel obstruction is identified. 2. There is a long segment of thick-walled and hyperemic distal small bowel above the ileocolic anastomosis. The appearance favors active Crohn's disease and clinical correlation will be required. 3. A perianal Seton is unchanged in position. A gas and fluid containing right perianal fluid collection as above likely represents a small fistula/abscess. 4. Additional findings as above. ACT 112: Negative or not required by law. Electronically signed by: Eddie Weiner M.D. 04/24/2023 1:49 PM MDM Narrative 53-year-old male with past medical history significant for Crohn's who presents emergency department for diffuse abdominal pain and diarrhea. Review of pertinent visits and past medical history performed. Vital signs in ED demonstrate initial tachycardia otherwise within normal limits. He is afebrile. IV access was established and labs were obtained. CBC without leukocytosis. No acute anemia. CMP without significant electrolyte abnormalities. Renal function unremarkable. LFTs and lipase normal. Lactate and procalcitonin normal. ESR elevated at 48. CRP elevated at 1.67. CT abdomen/pelvis was obtained. This was personally reviewed as well as interpreted by radiology as above and significant for 2.5 x 1.0 cm right perianal fluid collection. Perianal seton in place. No bowel obstruction or free air. Other chronic findings noted as above. Clinically, patient is nontoxic-appearing in no acute distress. He is diffusely tender throughout his abdomen. No rebound tenderness or guarding. No CVA tenderness. Lungs CTA. Remainder of physical exam unremarkable. He was initially treated with IV morphine, Zofran as well as 1 L of fluids. Given findings of perianal abscess, case was discussed with on-call general surgery physician mechanic's assistant, Mimi, for possible drainage. She reviewed case with attending Dr. Smith and given chronic seton with active Crohn's flare, no white count and afebrile she recommended p.o. antibiotics and outpatient follow-up with his colorectal doctor, Dr. Gayle. Case was additionally discussed with Dr. Radford, gastroenterology with [facility], who agreed with antibiotics and close GI follow-up for further management of his Crohn's disease. He did not recommend steroids at this time. Upon reevaluation, patient remains stable. He did require additional rounds of pain medications. He was updated on all exam findings and test results. Given active Crohn's flare and intractable abdominal pain, I do feel admission to the hospital for further pain control as well as IV antibiotics would be reasonable at this time. Patient was agreeable to this plan. Case was discussed with hospitalist, , who reviewed case and graciously excepted patient to his service. Patient was given his first dose of IV Rocephin and Flagyl here in the ED. He was otherwise admitted in stable condition. Case was discussed with attending, Dr. Martino, who agrees with work-up and treatment plan. Impression & Plan Intractable abdominal pain, Crohn's disease, Abscess, perianal Discharge Plan Visit Data Chief Complaint: Abdominal Pain Stated Complaint: CHRONS DISEASE,ABDOMINAL PAIN ED Provider: Keith Martino ED Midlevel Provider: Iveth Allan Discharge Problem: Intractable abdominal pain, Crohn's disease, Abscess, perianal Forms Stand Alone Forms: [facility] Prescriptions Prescriptions: No Action sulfasalazine 500 mg tablet 500 mg PO BID Qty: 180 1RF Rx Instructions: TAKE WITH FOOD. Entyvio 300 mg recon soln 300 mg IV Q8WK Qty: 1 8RF Rx Instructions: PER PT "DID NOT START YET". MISSED APPOINTMENT TO START lisinopril 10 mg tablet 10 mg PO QAM Qty: 90 3RF cholecalciferol (vitamin D3) 1,250 mcg (50,000 unit) capsule 50,000 unit PO WK Qty: 12 1RF Rx Instructions: TAKE THIS MED EVERY SUNDAYS loperamide [Imodium A-D] 2 mg tablet 2 mg PO Q6H PRN (Reason: Diarrhea) Qty: 60 5RF loratadine [Claritin] 10 mg tablet 10 mg PO QAM Qty: 90 3RF vitamin B complex [B Complex-Vitamin B12] Tablet 1 tab PO QAM Qty: 90 1RF MULTIDAY VITAMIN QC See Rx Instructions .ROUTE .COMPLEX Qty: 90 1RF Dose Instruction: TAKE ONE TABLET BY MOUTH EVERY DAY Rx Instructions: TAKE ONE TABLET BY MOUTH EVERY DAY ondansetron HCl [Zofran] 4 mg tablet 4 mg PO Q6H PRN (Reason: nausea and vomiting) Qty: 6 0RF alprazolam 1 mg tablet 1 mg PO TID acetaminophen [Tylenol Extra Strength] 500 mg Tablet 1,000 mg PO Q6H PRN (Reason: Pain) quetiapine 50 mg tablet 50 mg PO HS Pepcid Complete 10-800-165 mg Tablet,Chewable 0 tab PO DAILY omega 8-wph-dzw-fish oil [Fish Oil] 1,000 mg (120 mg-180 mg) Capsule 1 cap PO DAILY Rx Instructions: JUST STARTED 3 WEEKS AGO. oxycodone-acetaminophen [Percocet] 5-325 mg tablet 0 tab PO Q8H PRN (Reason: pain) oxycodone 5 mg tablet 0 mg PO Q6H PRN (Reason: pain) magnesium oxide 400 mg magnesium capsule 400 mg PO BID Qty: 20 0RF Referrals Referrals: PCP,NO [Primary Care Provider] -
[2023-04-24 12:12] LABS: Basophils # (auto) 0.05 K/uL (0-0.2); Basophils % (auto) 0.5 %; Eosinophils # (auto) 0.15 K/uL (0-0.50); Eosinophils % (auto) 1.4 %; Hematocrit (blood only) 35.3 % (42.0-52.0); Hemoglobin 11.5 g/dl (14.0-18.0); Immature Granulocytes # (auto) 0.04 K/uL (0.01-0.20); Immature Granulocytes % (auto) 0.4 %; Lymphocytes # (auto) 1.49 K/uL (1.2-3.4); Mean Corpuscular Hemoglobin 27.8 pg (25.0-34.0); Mean Corpuscular Hgb Conc 32.6 g/dL (32.0-36.0); Mean Corpuscular Volume 85.3 fL (80.0-100.0); Mean Platelet Volume 9.9 fL (9.4-12.4); Monocytes # (auto) 0.44 K/uL (0.11-0.59); Monocytes % (auto) 4.1 %; Neutrophils % (auto) 79.6 %; Platelet Count 302 K/uL (130-400); RDW Coefficient of Variation 14.9 % (11.5-14.5); RDW Standard Deviation 46.5 fL (36.4-46.3); Red Blood Count 4.14 M/uL (4.70-6.10); White Blood Count 10.67 K/ul (4.8-10.8)
[2023-04-24 12:28] LABS: Albumin Globulin Ratio 1.3 (0.9-2); BUN Creatinine Ratio 20.5 (10-20); Bilirubin,Total 0.2 mg/dl (0.2-1.0); C Reactive Protein 1.67 mg/dl (0-0.5); Calcium 9.3 mg/dl (8.6-10.3); Creatinine Clr Calc Pharmacy 85.8 ml/min; Est GFR (African American) 115.3 ml/min; Est GFR (Non-African American) 99.5 ml/min; Globulin 3.1 gm/dl (2.5-4.0); Total Protein 7.1 gm/dl (6.0-8.3)
[2023-04-24] MEDS ORDERED: OPTIRAY 320 100ml IV ONE (13:16)
[2023-04-24] MEDS ORDERED: HYDROmorphone INJ 1 MG/ML SYRINGE IV STA ×2 (13:52→15:28)
--- NOTE | 2023-04-24 13:52 | CT Scan Report ---
CT SCAN OF THE ABDOMEN AND PELVIS WITH IV CONTRAST CLINICAL HISTORY: Left upper quadrant abdominal pain. COMPARISON STUDY: Abdominal CT dated 12/03/2022. TECHNIQUE: Following the IV administration of 83 cc of Optiray 320, CT scan of the abdomen and pelvi s is performed from the lung bases to the proximal femora. Images are reviewed in the axial, sagittal , and coronal planes. IV contrast was administered without complication. A dose lowering technique wa s utilized adhering to the principles of ALARA. CT DOSE: 462.40 mGy.cm FINDINGS: Lung bases: The heart is normal in size and without pericardial effusion. A calcified granuloma is se en in the right lower lobe. The lung bases are otherwise clear. A small fat-containing Bochdalek narciso ia is noted on the left. A peripherally calcified 3 cm fat attenuation structure in the left cardioph renic angle is unchanged. Liver: The contrast-enhanced liver is normal in size, contour, and attenuation. There is no intrahepa tic biliary ductal dilatation. The hepatic veins and portal veins are patent. Gallbladder: Unremarkable. Spleen: Normal in size and attenuation. Pancreas: Unremarkable. Adrenal glands: A 19 mm right adrenal adenoma is unchanged. The left adrenal gland is normal in appea dane. Kidneys: The contrast enhanced kidneys are normal in size and without hydronephrosis. The kidneys enh ance symmetrically. Abdominal vasculature: The abdominal aorta is normal in course and caliber noting mild atheroscleroti c calcification. Bowel: There is postsurgical change from distal ilial resection with ileocolic anastomosis. No bowel obstruction is identified. Moderate fecal retention is present through out the colon. There is a long segment of thick-walled or hyperemic distal small bowel. This extends to the ileocolic anastomosis a nd favors active Crohn's disease. There is no CT evidence of stricture or abscess. Peritoneum: There is no intraperitoneal free air or abdominal ascites. Lymphadenopathy: Prominent mesenteric lymph nodes are likely reactive. Pelvic viscera: The bladder, prostate, and seminal vesicles are normal as visualized. A perianal Heaven n is in place. This is similar to previous. A 2.5 x 1.0 cm gas and fluid containing right perianal co llection is seen on image #331. This extends into the ischioanal tissues and approximates the anus at the 6:00 position. Skeletal structures: Sclerotic changes noted in the sacroiliac joints. A 12 mm bone island is again s een in the left iliac wing. No lytic or blastic lesions are seen. Soft tissues: The patient is cachectic. IMPRESSION: 1. There is postsurgical change from distal ileal resection with ileocolic anastomosis. No bowel obst ruction is identified. 2. There is a long segment of thick-walled and hyperemic distal small bowel above the ileocolic anast omosis. The appearance favors active Crohn's disease and clinical correlation will be required. 3. A perianal Seton is unchanged in position. A gas and fluid containing right perianal fluid collec tion as above likely represents a small fistula/abscess. 4. Additional findings as above. ACT 112: Negative or not required by law. Electronically signed by: Eddie Weiner M.D. 04/24/2023 1:49 PM
--- NOTE | 2023-04-24 14:03 | Electrocardiogram Report ---
Test Reason : Blood Pressure : / mmHG Vent. Rate : 089 BPM Atrial Rate : 089 BPM P-R Int : 134 ms QRS Dur : 094 ms QT Int : 366 ms P-R-T Axes : 058 029 030 degrees QTc Int : 445 ms Normal sinus rhythm Normal ECG When compared with ECG of 08-OCT-2022 21:13, Nonspecific T wave abnormality no longer evident in Lateral leads Confirmed by Sukhi Thomas ([id number]) on 04/24/2023 2:03:29 PM Referred By: Confirmed By:Sukhi Thomas
[2023-04-24] MEDS ORDERED: ALPRAZolam 0.5 MG TABLET PO STA (14:17)
--- NOTE | 2023-04-24 16:35 | History & Physical Report ---
Date of Service April 24, 2023 Assessment & Plan (1) Crohn's disease: Plan: Crohns, acute on chronic complicated by perirectal fistula -Patient with around 2 months of chronically worsening abdominal pain with radiation to the rectum, which is significantly worse in the last 3 weeks. He has no leukocytosis, Pro-Tyrese is normal Patient has a history of partial colectomy with history of ostomy s/p reversal - CT-A/P: 1. There is postsurgical change from distal ileal resection with ileocolic anastomosis. No bowel obstruction is identified. 2. There is a long segment of thick-walled and hyperemic distal small bowel above the ileocolic anastomosis. The appearance favors active Crohn's disease and clinical correlation will be required. 3. A perianal Seton is unchanged in position. A gas and fluid containing right perianal fluid collection as above likely represents a small fistula/abscess.4. Additional findings as above. Active Crohn's disease with right perianal fistula/abscess noted on CT. This was discussed with general surgery and GI by the ER on admit, drainage was not recommended at time of admission. Patient recommended for medical treatment with antibiotics and pain control, and if doing well follow-up with colorectal surgery as an outpatient. Patient reports that he has a reaction to ciprofloxacin and amoxicillin in the past where he gets severe knee swelling and pain, this has been recurrent and near immediate. He reports he cannot trial ciprofloxacin, even though this was not a rash/hive allergy. Patient has been able to tolerate cephalosporins in the past. Thinks he could tolerate Flagyl. We will continue ceftriaxone/Flagyl at this time with cefdinir with cefpodoxime/Flagyl as target oral transition. CBC daily No steroids at this time per GI will need outpatient follow[facility] Continue sulfasalazine N.p.o. + meds pending clinical improvement/progression, IV FM continued Hypertension Continue lisinopril Anxiety Continue home alprazolam DVT prophylaxis: SCDs Disposition: Medical/surgical CODE STATUS: Full code Diet: N.p.o. pending clinical improvement (2) Hyperlipidemia: (3) Perianal fistula due to Crohn's disease: History of Present Illness Primary Care Provider: NO PCP Hollis is a 53-year-old male with a history of Crohn's with partial colectomy and past ostomy placement with reversal who presents for evaluation of abdominal pain, fever, and chills. Abdominal pain in the center and low abdomen an dradiates into the back/rectum which started 2 months ago, but and has gradually worsened and has been much worse over the last 3 weeks.. Has a burning quality. +Gas but difficulty passing stool. +Fevers, +chills. No rigors. 10 days ago had a few episodes of nonbloody vomiting. +constipation. No bloody vomit, +mucousy BMs now very liquid. 1x with a little blood. Follows with [facility] in the past. Has a hx of Crohns. Had a stoma post partial colectomy/fistula surgery. Stoma reversed 11 months ago and did OK after. Needed 1 top up of fluids, but did well otherwise. Reversed after 9 weeks due to high output. Was doing well, but father in law passed in the last few weeks and mother in law had to move to a halfway which has increased his stress. Is on sulfasalazine, eventually is going to start Activio but deferred this due to deaths in the family. Takes sufasalazine as direct. No recent steroid use. Last steroid use was a taper after reversal of his ostomy. Takes omega 3 oil., Thinks this is helped his symptoms. Otherwise denies remitting factors/attempted treatment. Denies chest pain, chest pressure, shortness of breath, difficulty breathing. No lightheadedness/dizziness. Medical History: Reviewed Medications: Reviewed Surgical History: Reviewed Family history: Reviewed Allergies: Reviewed. Leg swelling with cipro in the past, reportts he cannot take cipro. Same thing with amoxicillin, has tolerated cephalosporins Social History: No etoh use. Tobacco use current 0.5ppd. Declines patch Code Status: Full Code Allergies Allergy/AdvReac Type Severity Reaction Status Date / Time infliximab Allergy Severe TONGUE Verified 11/19/21 13:03 SWELLING, hives ciprofloxacin [From Cipro] Allergy Intermediate Knee Verified 11/19/21 13:03 Swelling metronidazole [From Flagyl] Allergy Intermediate Knee Verified 11/19/21 13:03 Swelling Penicillins Allergy Intermediate KNEE Unverified 04/24/23 15:58 SWELLING codeine Allergy Mild Rash Verified 11/19/21 13:03 doxycycline Allergy Unknown Unknown Unverified 04/24/23 15:58 Home Medications Medication Instructions Recorded Confirmed Type alprazolam 1 mg tablet 1 mg PO TID 05/18/19 04/24/23 History sulfasalazine 500 mg tablet 500 mg PO BID #180 tabs 01/27/21 04/24/23 Rx acetaminophen 500 mg tablet 1,000 mg PO Q6H PRN Pain 04/07/21 04/24/23 History (Tylenol Extra Strength) ondansetron HCl 4 mg tablet 4 mg PO Q6H PRN nausea and 04/14/21 04/24/23 Rx (Zofran) vomiting #6 tabs vedolizumab 300 mg intravenous 300 mg IV Q8WK #1 ea 04/22/21 04/24/23 Rx solution (Entyvio) lisinopril 10 mg tablet 10 mg PO QAM #90 tabs 05/20/21 04/24/23 Rx cholecalciferol (vitamin D3) 1,250 50,000 unit PO WK #12 caps 08/11/21 04/24/23 Rx mcg (50,000 unit) capsule loperamide 2 mg tablet (Imodium 2 mg PO Q6H PRN Diarrhea #60 tabs 08/11/21 04/24/23 Rx A-D) loratadine 10 mg tablet (Claritin) 10 mg PO QAM #90 tabs 08/11/21 04/24/23 Rx vitamin B complex (B 1 tab PO QAM #90 tabs 12/01/21 04/24/23 Rx Complex-Vitamin B12 tablet) MULTIDAY VITAMIN QC See Rx Instructions .Route 12/02/21 04/24/23 Rx .COMPLEX #90 tabs magnesium oxide 400 mg PO BID #20 caps 12/04/22 04/24/23 Rx famotidine-Ca carb-mag hydrox 10 0 tab PO DAILY 04/24/23 04/24/23 History mg-800 mg-165 mg chewable tablet (Pepcid Complete) omega 0-pxu-zhk-fish oil 1,000 mg 1 cap PO DAILY 04/24/23 04/24/23 History (120 mg-180 mg) capsule (Fish Oil) oxycodone 5 mg tablet 0 mg PO Q6H PRN pain 04/24/23 04/24/23 History oxycodone-acetaminophen 5 mg-325 0 tab PO Q8H PRN pain 04/24/23 04/24/23 History mg tablet (Percocet) quetiapine 50 mg tablet 50 mg PO HS 04/24/23 04/24/23 History Past Med/Surg History Medical History Anemia chronic Anxiety Cardiac murmur no further details; no murmur noted per [facility] ER evaluation 05/18/19* Crohns disease GERD (gastroesophageal reflux disease) 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 Hypertension Lyme disease diagnosed 03/2021--currently on antibiotics Medical marijuana use Opioid dependence Perianal fistula due to Crohn's disease Throat pain Tongue pain Surgical History Fistula anal fistula x2 with repair--currently has [address] H/O skin graft RIGHT LEG History of bowel resection X2 TOTAL History of colonoscopy History of esophagogastroduodenoscopy (EGD) History of incision and drainage (~12/2020) perianal fistula and abdominal wall abcess with seton placement @ [facility] History of open reduction and internal fixation (ORIF) procedure LEFT ANKLE History of surgery Salivary Gland - 2018, Sublingual Gland - 2019 History of tonsillectomy Family History Mother Family hx of colon cancer Stroke Family/Other Family history of diabetes mellitus Other Allergies Cancer Colorectal cancer Hypertension No family history of adverse response to anesthesia No family history of bleeding disorder Denies family history of Ovarian cancer Prostate cancer Myocardial infarction Breast cancer Social History Smoking Status: Current every day smoker Tobacco Type: Cigarettes Age Started Using Tobacco: 14; Age Quit Using Tobacco: 51; Cigarettes Per Day: 2 cigarettes per day at most; Second Hand Exposure: No; Do You Dip or Chew Tobacco: No (used to ); Hx Alcohol Use: No Hx Substance Use: Yes (medical marijuana) Prescribed Medications: Marijuana Last Used Substance Other:: last used 1 month ago Preferred Language: Ukrainian Communication Ability: Effective Visual Impairment: No Limitations Hearing Ability: Normal Mail Deliverer Required: No Beliefs That Will Affect Care: None marital status: Current Living Situation: Spouse current occupational status: disabled Feels Safe at Home: Yes Childhood Exposure to Second-Hand Smoke: Yes Diet: regular Dental Care, Regularly: Yes Physical Activity Frequency: Does not Exercise Seatbelt Use: always Sunscreen Use: No Assistive Devices: None Review of Systems Review of Systems: All systems reviewed & are unremarkable except as noted in HPI & below Physical Exam Physical Exam: General: A&Ox3. NAD. Cooperative. HEENT: Atraumatic, normocephalic. Vision/hearing intact Pulm: CTAB A&P. -wheezes, -rales, -rhonchi. Symmetrical chest rise. No increased work of breathing. No respiratory distress. Cardiac: RRR, -mrg. Radial pulses intact and symmetrical. Abdominal: Healed ostomy scar, prior surgical scars. Diffuse mild tenderness to palpation, nondistended, soft. BS present bu tdiminished. Extremities: warm, dry. Moves all extremities equally Results & Data Results & Data Vital Signs (Past 12 Hours) Vital Signs Temp Pulse Pulse Resp BP BP Pulse Ox 04/24/23 14:00 86 18 129/102 H 99 04/24/23 12:23 04/24/23 11:17 36.7 C 106 H 20 145/95 H 98 O2 Del Method 04/24/23 14:00 Room Air 04/24/23 12:23 Room Air 04/24/23 11:17 Room Air PG Care Time/CCT Total # of Minutes Spent Total Time Spent with Patient: Total time spent is greater than 50% in coordination of care (as documented) at patient's floor/unit and/or counseling patient: Coding Level of Care Code 03612 INT INP/OBS CARE 2/55MIN Diagnoses Crohn's disease K50.919 Digestive disease complication type: unspecified complication Gastrointestinal tract location: unspecified location Hyperlipidemia E78.5 Perianal fistula due to Crohn's disease K50.913 (1) Crohn's disease Digestive disease complication type: unspecified complication Gastrointestinal tract location: unspecified location Qualified Code(s): K50.919 - Crohn's disease, unspecified, with unspecified complications
[2023-04-24] MEDS ORDERED: cefTRIAXone SODIUM 1,000 MG in DEXTROSE 5% AD-VAN 50 ML IV STA (16:38)
[2023-04-24] MEDS ORDERED: metroNIDAZOLE 500 MG/100 ML BAG IV STA (16:38)
[2023-04-24] MEDS ORDERED: HYDROmorphone INJ 0.5 MG/0.5 ML SYR IV STA (16:54)
[2023-04-24] MEDS: PLASMA-LYTE A 1,000 ML IV SCH (17:19)
[2023-04-24] MEDS ORDERED: ONDANSETRON INJ 2 MG/ML 2 ML VIAL IV PRN (17:58)
[2023-04-24] MEDS ORDERED: ACETAMINOPHEN 1,000 MG/100 ML VIAL IV PRN (17:58)
[2023-04-24] MEDS ORDERED: ACETAMINOPHEN 500 MG TAB PO PRN (17:58)
[2023-04-24 18:04] LABS: Appearance Urine Clear (Clear); Bilirubin Urine Negative (Negative); Blood Urine Negative (Negative); Color Urine Yellow; Glucose Urine UA Negative (Negative); Ketones Urine Negative (Negative); Leukocyte Esterase Urine Negative (Negative); Nitrite Urine Negative (Negative); Protein Urine Negative (Negative); Specific Gravity Urine 1.045 (1.000-1.030); Urobilinogen Urine Negative (Negative)
[2023-04-24] MEDS: HYDROmorphone INJ 0.5 MG/0.5 ML SYR IV PRN (20:17)
[2023-04-24] MEDS: sulfaSALAzine 500 MG TABLET PO SCH (20:25)
[2023-04-24] MEDS: QUEtiapine FUMARATE 25 MG TABLET PO SCH (20:25)
[2023-04-24] MEDS: ALPRAZolam 0.5 MG TABLET PO SCH (20:25)
[2023-04-25] MEDS: metroNIDAZOLE 500 MG/100 ML BAG IV SCH ×3 (00:16→17:27)
[2023-04-25] MEDS: HYDROmorphone INJ 0.5 MG/0.5 ML SYR IV PRN ×6 (02:06→22:03)
[2023-04-25] MEDS: PLASMA-LYTE A 1,000 ML IV SCH ×2 (06:07→23:09)
[2023-04-25 06:35] LABS: Basophils # (auto) 0.05 K/uL (0-0.2); Basophils % (auto) 0.6 %; Eosinophils # (auto) 0.29 K/uL (0-0.50); Eosinophils % (auto) 3.6 %; Hematocrit (blood only) 32.7 % (42.0-52.0); Hemoglobin 10.5 g/dl (14.0-18.0); Immature Granulocytes # (auto) 0.03 K/uL (0.01-0.20); Immature Granulocytes % (auto) 0.4 %; Lymphocytes # (auto) 2.12 K/uL (1.2-3.4); Lymphocytes % (auto) 26.5 %; Mean Corpuscular Hemoglobin 27.6 pg (25.0-34.0); Mean Corpuscular Hgb Conc 32.1 g/dL (32.0-36.0); Mean Corpuscular Volume 86.1 fL (80.0-100.0); Mean Platelet Volume 9.8 fL (9.4-12.4); Monocytes # (auto) 0.49 K/uL (0.11-0.59); Monocytes % (auto) 6.1 %; Neutrophils # (auto) 5.03 K/uL (1.40-6.50); Neutrophils % (auto) 62.8 %; Platelet Count 230 K/uL (130-400); RDW Coefficient of Variation 15.2 % (11.5-14.5); RDW Standard Deviation 47.8 fL (36.4-46.3); White Blood Count 8.01 K/ul (4.8-10.8)
[2023-04-25 07:11] LABS: Calcium 8.4 mg/dl (8.6-10.3); Potassium 4.2 mmol/L (3.5-5.1)
[2023-04-25 07:17] LABS: BUN Creatinine Ratio 23.2 (10-20); C Reactive Protein 1.23 mg/dl (0-0.5); Est GFR (African American) 118.7 ml/min; Est GFR (Non-African American) 102.4 ml/min
[2023-04-25] MEDS: sulfaSALAzine 500 MG TABLET PO SCH ×2 (08:23→17:27)
[2023-04-25] MEDS: lisinopril 10 MG TAB PO SCH (08:23)
[2023-04-25] MEDS: VITAMIN B COMPLEX TAB PO SCH (08:23)
[2023-04-25] MEDS: LORATADINE 10 MG TAB PO SCH (08:23)
[2023-04-25] MEDS: ALPRAZolam 0.5 MG TABLET PO SCH ×3 (08:29→21:23)
--- NOTE | 2023-04-25 09:11 | Hospitalist Progress Note ---
Date of Service April 25, 2023 Assessment & Plan (1) Crohn's disease: Plan: Crohns, acute on chronic complicated by perirectal fistula Patient with around 2 months of chronically worsening abdominal pain with radiation to the rectum, which is significantly worse in the last 3 weeks. Hx partial colectomy w/ hx ostomy and s/p reveral CTAP on admission w/ * There is postsurgical change from distal ileal resection with ileocolic anastomosis. No bowel obstruction is identified. * There is a long segment of thick-walled and hyperemic distal small bowel above the ileocolic anastomosis. The appearance favors active Crohn's disease and clinical correlation will be required * A perianal Seton is unchanged in position. A gas and fluid containing right perianal fluid collection as above likely represents a small fistula/abscess. Active Crohn's disease with right perianal fistula/abscess noted on CT. This was discussed with Discussed by ER provider w/ [facility] GI Dr Radford, General surgery PA who recommended admission for antibiotics/pain control and follow up colorect al surgery as outpatient. GI rec AGAINST steroids at present Prior issues w/ Cipro (joint/myalgias/swelling) in the past Placed on Ceftriaxone/Flagyl and has been tolerating--> plans to transition to Cefdinir vs Cefpodoxime in addition to PO Flagyl at discharge - Will continue IV abx for now, consider switching to PO prior to dc to ensure able to tolerate WBC w/o leukocytosis, afebrile Pain control/antiemetics prn -- Added Oxycodone prn to avoid need for IV NPO this morning x meds - +BM this morning, pain much improved - will trial clear liquids for now Extended IVF duration/but decreased rate to 75cc/hr from 125cc/hr (time out tomorrow AM) Pain control/antiemetics prn Messaged IR provider to see if able to accommodate such/possible drainage here vs having the outpt colorectal follow up Discussed w/ Dolores Perez as to be starting Entyvio as outpatient, she will see in AM. Consult placed. Of note, he had hx latent TB, reports to me he completed course rifampin outpatient last year Remains on Sulfasalazine Monitor labs in AM (2) H/O: HTN (hypertension): Plan: BP stable remains on lisinopril Anxiety Stable mood on exam Continue home alprazolam - takes 1mg about every 8 hours at home (3) Perianal fistula due to Crohn's disease: Plan: needing colorectal f/u as above Plan DVT prophylaxis: SCDs, has been ambulating in the room without issue, no evidence for DVT at present-- if remains inpatient past tomorrow consider adding chemoprophylaxis while inpatient trial clear liquid diet planning to change ABx to PO in AM if tolerating diet/continuing to move his bowels GI consulted -- Dolores Perez to see in AM calling to arrange f/u colorectal, but as discussed can assist if having any issues Admission and Anticipated Discharge Date Admission Date: April 24, 2023 Supervising Physician Co-Signing Physician Notes PA Supervision Note: I did not personally see or examine the patient today, but I verified all ngo points of GADIEL Greenberg's assessment and plan with the following exceptions/additions: None Subjective eval after lunch time, at bedside. he is tolerating the antibiotics. issues w/ cipro/joint in the past but also noted he had been treated for lyme w/ amoxicillin and had been on/off the cipro for years in the past. s/p ostomy and reversal in the past. going to call for f/u appt colorectal and he follows with [facility] to start entyvio which he notes he had been to start prior but father committed suicide in November and her mom needed placement in long-term but that he is on board to get better care of himself. He has been dealing w/ Crohns since 1997. He endorses he had completed course treatment for Latent TB w/ rifampin in the past as well. +BM this morning -- first time since over a week. He notes he had been having a lot of gas pain which has also resolved since moving his bowels. He does note needing eventual drainage of fistula/fluid collection. He notes he had been having more pus/drainage and now less mucus/pus and more scanty bloody drainage. Discussed advancement of diet and monitoring response. Will message Dolores Perez about follow up to start the Entyvio and to call colorectal -- to alert if needing help arranging follow up. Review of Systems Review of Systems: All systems reviewed & are unremarkable except as noted in HPI & below Physical Exam Physical Exam: General: chronically ill appearing, thin male, standing at bedside getting clothes from his bag to get changed, NAD HEENT: head normocephalic, atraumatic, mm slightly dry, trachea midline Resp: CTA, no w/c, on room air CV: RRR, no significant m/r/g, no pitting edema GI: +BS, soft, minimal tenderness, no guarding/rigidity, healed ostomy scar MSK/Neuro: no slurred speech/facial droop, no focal deficit Psych: aox3, cooperative Results & Data Results & Data Vital Signs (Past 12 Hours) Vital Signs Temp Pulse Resp BP Pulse Ox O2 Del Method 04/25/23 07:11 36.6 C 74 16 113/77 96 Room Air Laboratory Results 04/25/23 04/25/23 04/24/23 Range/Units 06:14 06:14 17:26 WBC 8.01 (4.8-10.8) K/ul RBC 3.80 L (4.70-6.10) M/uL Hgb 10.5 L (14.0-18.0) g/dl Hct 32.7 L (42.0-52.0) % MCV 86.1 (80.0-100.0) fL MCH 27.6 (25.0-34.0) pg MCHC 32.1 (32.0-36.0) g/dL RDW Std Deviation 47.8 H (36.4-46.3) fL RDW Coeff of Juancarlos 15.2 H (11.5-14.5) % Plt Count 230 (130-400) K/uL MPV 9.8 (9.4-12.4) fL Immature Gran % (Auto) 0.4 % Neut % (Auto) 62.8 % Lymph % (Auto) 26.5 % [place] % (Auto) 6.1 % Eos % (Auto) 3.6 % Baso % (Auto) 0.6 % Neut # (Auto) 5.03 (1.40-6.50) K/uL Lymph # (Auto) 2.12 (1.2-3.4) K/uL [place] # (Auto) 0.49 (0.11-0.59) K/uL Eos # (Auto) 0.29 (0-0.50) K/uL Baso # (Auto) 0.05 (0-0.2) K/uL Immature Gran # (Auto) 0.03 (0.01-0.20) K/uL ESR (0-20) mm/hr Sodium 138 (136-145) mmol/L Potassium 4.2 (3.5-5.1) mmol/L Chloride 107 (98-107) mmol/L Carbon Dioxide 26 (21-32) mmol/L Anion Gap 5 (3-11) BUN 19 (6-23) mg/dl Creatinine 0.82 (0.6-1.4) mg/dl Est Cr Clr Drug Dosing 92.0 ml/min Est GFR ( Amer) 118.7 ml/min Est GFR (Non-Af Amer) 102.4 ml/min BUN/Creatinine Ratio 23.2 H (10-20) Glucose 88 (70-99(Fasting)) mg/dl Lactate (0.4-2.0) mmol/L Calcium 8.4 L (8.6-10.3) mg/dl Total Bilirubin (0.2-1.0) mg/dl AST (13-39) U/L ALT (7-52) U/L Alkaline Phosphatase (34-104) U/L C-Reactive Protein 1.23 H (0-0.5) mg/dl Total Protein (6.0-8.3) gm/dl Albumin (3.4-5.0) gm/dl Globulin (2.5-4.0) gm/dl Albumin/Globulin Ratio (0.9-2) Lipase (11-82) U/L Procalcitonin (0-0.5) ng/ml Urine Color Yellow Urine Appearance Clear (Clear) Urine pH 5.0 (4.5-7.5) Ur Specific [place] 1.045 H (1.000-1.030) Urine Protein Negative (Negative) Urine Glucose (UA) Negative (Negative) Urine Ketones Negative (Negative) Urine Blood Negative (Negative) Urine Nitrite Negative (Negative) Urine Bilirubin Negative (Negative) Urine Urobilinogen Negative (Negative) Ur Leukocyte Esterase Negative (Negative) SARS-CoV-2, RNA, NAAT (NEGATIVE) 04/24/23 04/24/23 04/24/23 Range/Units 12:10 11:56 11:41 WBC (4.8-10.8) K/ul RBC (4.70-6.10) M/uL Hgb (14.0-18.0) g/dl Hct (42.0-52.0) % MCV (80.0-100.0) fL MCH (25.0-34.0) pg MCHC (32.0-36.0) g/dL RDW Std Deviation (36.4-46.3) fL RDW Coeff of Juancarlos (11.5-14.5) % Plt Count (130-400) K/uL MPV (9.4-12.4) fL Immature Gran % (Auto) % Neut % (Auto) % Lymph % (Auto) % [place] % (Auto) % Eos % (Auto) % Baso % (Auto) % Neut # (Auto) (1.40-6.50) K/uL Lymph # (Auto) (1.2-3.4) K/uL [place] # (Auto) (0.11-0.59) K/uL Eos # (Auto) (0-0.50) K/uL Baso # (Auto) (0-0.2) K/uL Immature Gran # (Auto) (0.01-0.20) K/uL ESR (0-20) mm/hr Sodium (136-145) mmol/L Potassium (3.5-5.1) mmol/L Chloride (98-107) mmol/L Carbon Dioxide (21-32) mmol/L Anion Gap (3-11) BUN (6-23) mg/dl Creatinine (0.6-1.4) mg/dl Est Cr Clr Drug Dosing ml/min Est GFR ( Amer) ml/min Est GFR (Non-Af Amer) ml/min BUN/Creatinine Ratio (10-20) Glucose (70-99(Fasting)) mg/dl Lactate 0.8 (0.4-2.0) mmol/L Calcium (8.6-10.3) mg/dl Total Bilirubin (0.2-1.0) mg/dl AST (13-39) U/L ALT (7-52) U/L Alkaline Phosphatase (34-104) U/L C-Reactive Protein (0-0.5) mg/dl Total Protein (6.0-8.3) gm/dl Albumin (3.4-5.0) gm/dl Globulin (2.5-4.0) gm/dl Albumin/Globulin Ratio (0.9-2) Lipase (11-82) U/L Procalcitonin 0.07 (0-0.5) ng/ml Urine Color Urine Appearance (Clear) Urine pH (4.5-7.5) Ur Specific [place] (1.000-1.030) Urine Protein (Negative) Urine Glucose (UA) (Negative) Urine Ketones (Negative) Urine Blood (Negative) Urine Nitrite (Negative) Urine Bilirubin (Negative) Urine Urobilinogen (Negative) Ur Leukocyte Esterase (Negative) SARS-CoV-2, RNA, NAAT NEGATIVE (NEGATIVE) 04/24/23 04/24/23 04/24/23 Range/Units 11:41 11:41 11:41 WBC 10.67 (4.8-10.8) K/ul RBC 4.14 L (4.70-6.10) M/uL Hgb 11.5 L (14.0-18.0) g/dl Hct 35.3 L (42.0-52.0) % MCV 85.3 (80.0-100.0) fL MCH 27.8 (25.0-34.0) pg MCHC 32.6 (32.0-36.0) g/dL RDW Std Deviation 46.5 H (36.4-46.3) fL RDW Coeff of Juancarlos 14.9 H (11.5-14.5) % Plt Count 302 (130-400) K/uL MPV 9.9 (9.4-12.4) fL Immature Gran % (Auto) 0.4 % Neut % (Auto) 79.6 % Lymph % (Auto) 14.0 % [place] % (Auto) 4.1 % Eos % (Auto) 1.4 % Baso % (Auto) 0.5 % Neut # (Auto) 8.50 H (1.40-6.50) K/uL Lymph # (Auto) 1.49 (1.2-3.4) K/uL [place] # (Auto) 0.44 (0.11-0.59) K/uL Eos # (Auto) 0.15 (0-0.50) K/uL Baso # (Auto) 0.05 (0-0.2) K/uL Immature Gran # (Auto) 0.04 (0.01-0.20) K/uL ESR 48 H (0-20) mm/hr Sodium 137 (136-145) mmol/L Potassium 4.0 (3.5-5.1) mmol/L Chloride 105 (98-107) mmol/L Carbon Dioxide 25 (21-32) mmol/L Anion Gap 7 (3-11) BUN 18 (6-23) mg/dl Creatinine 0.88 (0.6-1.4) mg/dl Est Cr Clr Drug Dosing 85.8 ml/min Est GFR ( Amer) 115.3 ml/min Est GFR (Non-Af Amer) 99.5 ml/min BUN/Creatinine Ratio 20.5 H (10-20) Glucose 90 (70-99(Fasting)) mg/dl Lactate (0.4-2.0) mmol/L Calcium 9.3 (8.6-10.3) mg/dl Total Bilirubin 0.2 (0.2-1.0) mg/dl AST 17 (13-39) U/L ALT 27 (7-52) U/L Alkaline Phosphatase 78 (34-104) U/L C-Reactive Protein 1.67 H (0-0.5) mg/dl Total Protein 7.1 (6.0-8.3) gm/dl Albumin 4.0 (3.4-5.0) gm/dl Globulin 3.1 (2.5-4.0) gm/dl Albumin/Globulin Ratio 1.3 (0.9-2) Lipase 32 (11-82) U/L Procalcitonin (0-0.5) ng/ml Urine Color Urine Appearance (Clear) Urine pH (4.5-7.5) Ur Specific [place] (1.000-1.030) Urine Protein (Negative) Urine Glucose (UA) (Negative) Urine Ketones (Negative) Urine Blood (Negative) Urine Nitrite (Negative) Urine Bilirubin (Negative) Urine Urobilinogen (Negative) Ur Leukocyte Esterase (Negative) SARS-CoV-2, RNA, NAAT (NEGATIVE) Diagnostic Findings Abdomen/Pelvis CT 04/24/23 11:56 CT SCAN OF THE ABDOMEN AND PELVIS WITH IV CONTRAST CLINICAL HISTORY: Left upper quadrant abdominal pain. COMPARISON STUDY: Abdominal CT dated 12/03/2022. TECHNIQUE: Following the IV administration of 83 cc of Optiray 320, CT scan of the abdomen and pelvis is performed from the lung bases to the proximal femora. Images are reviewed in the axial, sagittal, and coronal planes. IV contrast was administered without complication. A dose lowering technique was utilized adhering to the principles of ALARA. CT DOSE: 462.40 mGy.cm FINDINGS: Lung bases: The heart is normal in size and without pericardial effusion. A calcified granuloma is seen in the right lower lobe. The lung bases are otherwise clear. A small fat-containing Bochdalek hernia is noted on the left. A peripherally calcified 3 cm fat attenuation structure in the left cardiophrenic angle is unchanged. Liver: The contrast-enhanced liver is normal in size, contour, and attenuation. There is no intrahepatic biliary ductal dilatation. The hepatic veins and portal veins are patent. Gallbladder: Unremarkable. Spleen: Normal in size and attenuation. Pancreas: Unremarkable. Adrenal glands: A 19 mm right adrenal adenoma is unchanged. The left adrenal gland is normal in appearance. Kidneys: The contrast enhanced kidneys are normal in size and without hydronephrosis. The kidneys enhance symmetrically. Abdominal vasculature: The abdominal aorta is normal in course and caliber noting mild atherosclerotic calcification. Bowel: There is postsurgical change from distal ilial resection with ileocolic anastomosis. No bowel obstruction is identified. Moderate fecal retention is present through out the colon. There is a long segment of thick-walled or hyperemic distal small bowel. This extends to the ileocolic anastomosis and favors active Crohn's disease. There is no CT evidence of stricture or abscess. Peritoneum: There is no intraperitoneal free air or abdominal ascites. Lymphadenopathy: Prominent mesenteric lymph nodes are likely reactive. Pelvic viscera: The bladder, prostate, and seminal vesicles are normal as visualized. A perianal Seton is in place. This is similar to previous. A 2.5 x 1.0 cm gas and fluid containing right perianal collection is seen on image #331. This extends into the ischioanal tissues and approximates the anus at the 6:00 position. Skeletal structures: Sclerotic changes noted in the sacroiliac joints. A 12 mm bone island is again seen in the left iliac wing. No lytic or blastic lesions are seen. Soft tissues: The patient is cachectic. IMPRESSION: 1. There is postsurgical change from distal ileal resection with ileocolic anastomosis. No bowel obstruction is identified. 2. There is a long segment of thick-walled and hyperemic distal small bowel above the ileocolic anastomosis. The appearance favors active Crohn's disease and clinical correlation will be required. 3. A perianal Seton is unchanged in position. A gas and fluid containing right perianal fluid collection as above likely represents a small fistula/abscess. 4. Additional findings as above. ACT 112: Negative or not required by law. Electronically signed by: Eddie Weiner M.D. 04/24/2023 1:49 PM PG Care Time/CCT Total # of Minutes Spent Total Time Spent with Patient: Total time spent is greater than 50% in coordination of care (as documented) at patient's floor/unit and/or counseling patient: Coding Level of Care Code 42040 SUB INP/OBS CARE 350MIN Diagnoses Crohn's disease K50.919 Digestive disease complication type: unspecified complication Gastrointestinal tract location: unspecified location H/O: HTN (hypertension) Z86.79 Perianal fistula due to Crohn's disease K50.913 (1) Crohn's disease Digestive disease complication type: unspecified complication Gastrointestinal tract location: unspecified location Qualified Code(s): K50.919 - Crohn's disease, unspecified, with unspecified complications
[2023-04-25] MEDS ORDERED: Nursing to Pharmacy Communication SCH (14:30)
[2023-04-25] MEDS ORDERED: cefTRIAXone SODIUM 2,000 MG in DEXTROSE 5% 50 ML IV SCH (17:00)
[2023-04-25] MEDS: QUEtiapine FUMARATE 25 MG TABLET PO SCH (21:23)
[2023-04-25] MEDS: oxyCODONE HCL IR 5 MG TAB (IMMEDIATE RELEASE) PO PRN (21:24)
[2023-04-26] MEDS: metroNIDAZOLE 500 MG/100 ML BAG IV SCH ×2 (00:59→07:47)
[2023-04-26] MEDS: HYDROmorphone INJ 0.5 MG/0.5 ML SYR IV PRN ×4 (02:07→14:02)
[2023-04-26] MEDS: ALPRAZolam 0.5 MG TABLET PO SCH ×2 (06:11→14:02)
[2023-04-26] MEDS: lisinopril 10 MG TAB PO SCH (07:47)
[2023-04-26] MEDS: sulfaSALAzine 500 MG TABLET PO SCH (07:47)
[2023-04-26] MEDS: LORATADINE 10 MG TAB PO SCH (07:47)
[2023-04-26] MEDS: VITAMIN B COMPLEX TAB PO SCH (07:47)
--- NOTE | 2023-04-26 08:56 | Hospitalist Progress Note ---
Date of Service April 26, 2023 Assessment & Plan (1) Crohn's disease: Plan: Crohns, acute on chronic complicated by perirectal fistula Patient with around 2 months of chronically worsening abdominal pain with radiation to the rectum, which is significantly worse in the last 3 weeks. Hx partial colectomy w/ hx ostomy and s/p reveral CTAP on admission w/ * There is postsurgical change from distal ileal resection with ileocolic anastomosis. No bowel obstruction is identified. * There is a long segment of thick-walled and hyperemic distal small bowel above the ileocolic anastomosis. The appearance favors active Crohn's disease and clinical correlation will be required * A perianal Seton is unchanged in position. A gas and fluid containing right perianal fluid collection as above likely represents a small fistula/abscess. Active Crohn's disease with right perianal fistula/abscess noted on CT. This was discussed with Discussed by ER provider w/ [facility] Dr Radford, General surgery PA who recommended admission for antibiotics/pain control and follow up colorect al surgery as outpatient. GI rec AGAINST steroids at present Prior issues w/ Cipro (joint/myalgias/swelling) in the past Placed on Ceftriaxone/Flagyl and has been tolerating--> plans to transition to Cefdinir vs Cefpodoxime in addition to PO Flagyl at discharge - Will continue IV abx for now, consider switching to PO prior to dc to ensure able to tolerate WBC w/o leukocytosis, afebrile Pain control/antiemetics prn -- Added Oxycodone prn to avoid need for IV NPO this morning x meds - +BM this morning, pain much improved - will trial clear liquids for now Extended IVF duration/but decreased rate to 75cc/hr from 125cc/hr (time out tomorrow AM) Pain control/antiemetics prn Messaged IR provider to see if able to accommodate such/possible drainage here vs having the outpt colorectal follow up Discussed w/ Dolores Perez as to be starting Entyvio as outpatient, she will this morning Consult placed. Of note, he had hx latent TB, reports to me he completed course rifampin outpatient last year Remains on Sulfasalazine Monitor labs in AM (2) H/O: HTN (hypertension): Plan: BP stable remains on lisinopril Anxiety Stable mood on exam Continue home alprazolam - takes 1mg about every 8 hours at home (3) Perianal fistula due to Crohn's disease: Plan: needing colorectal f/u as above Plan DVT prophylaxis: SCDs, has been ambulating in the room without issue, no evidence for DVT at present-- if remains inpatient past tomorrow consider adding chemoprophylaxis while inpatient trial clear liquid diet planning to change ABx to PO in AM if tolerating diet/continuing to move his bowels GI consulted -- Dolores Perez to see in AM calling to arrange f/u colorectal, but as discussed can assist if having any issues Admission and Anticipated Discharge Date Admission Date: April 24, 2023 Results & Data Results & Data Vital Signs (Past 12 Hours) Vital Signs Temp Pulse Resp BP Pulse Ox O2 Del Method 04/26/23 08:01 36.7 C 82 16 126/83 96 Room Air PG Care Time/CCT Total # of Minutes Spent Total Time Spent with Patient: Total time spent is greater than 50% in coordination of care (as documented) at patient's floor/unit and/or counseling patient: Coding Diagnoses Crohn's disease K50.919 Digestive disease complication type: unspecified complication Gastrointestinal tract location: unspecified location H/O: HTN (hypertension) Z86.79 Perianal fistula due to Crohn's disease K50.913 (1) Crohn's disease Digestive disease complication type: unspecified complication Gastroint estinal tract location: unspecified location Qualified Code(s): K50.919 - Crohn's disease, unspecified, with unspecified complications
[2023-04-26 09:03] LABS: Basophils # (auto) 0.05 K/uL (0-0.2); Basophils % (auto) 0.7 %; Eosinophils # (auto) 0.32 K/uL (0-0.50); Eosinophils % (auto) 4.6 %; Hematocrit (blood only) 34.5 % (42.0-52.0); Immature Granulocytes # (auto) 0.03 K/uL (0.01-0.20); Immature Granulocytes % (auto) 0.4 %; Lymphocytes # (auto) 2.18 K/uL (1.2-3.4); Lymphocytes % (auto) 31.4 %; Mean Corpuscular Hemoglobin 27.4 pg (25.0-34.0); Mean Corpuscular Hgb Conc 31.9 g/dL (32.0-36.0); Mean Corpuscular Volume 85.8 fL (80.0-100.0); Mean Platelet Volume 10.5 fL (9.4-12.4); Monocytes # (auto) 0.41 K/uL (0.11-0.59); Monocytes % (auto) 5.9 %; Neutrophils # (auto) 3.96 K/uL (1.40-6.50); Platelet Count 226 K/uL (130-400); RDW Standard Deviation 47.2 fL (36.4-46.3); Red Blood Count 4.02 M/uL (4.70-6.10); White Blood Count 6.95 K/ul (4.8-10.8)
[2023-04-26 09:36] LABS: BUN Creatinine Ratio 15.2 (10-20); Calcium 8.6 mg/dl (8.6-10.3); Creatinine Clr Calc Pharmacy 95.4 ml/min; Est GFR (African American) 120.5 ml/min; Magnesium 1.6 mg/dl (1.7-2.4); Potassium 3.4 mmol/L (3.5-5.1)
[2023-04-26] MEDS ORDERED: predniSONE 20 MG TAB PO SCH (10:00)
--- NOTE | 2023-04-26 10:10 | Gastrointestinal Consultation ---
Supervising physicians note Discussed case with Dolores Perez NP as well as reviewed records, discussed with ER last night and visited with patient. For full details see note of Doloresalex Perez Patient with complicated Crohn's disease resulting in multiple surgeries. He has a history of noncompliance with follow up and medications. He is admitted with two months of ongoing abdominal pain. He also is being discharged today. He will be following up with Dolores Perez in the GI clinic to discuss institution of Entyvio for treatment. I spent 10 minutes discussing the importance of compliance with him and the fact that any more evidence of noncompliance and he will need to find other GI care. He understands and vows compliance. I have spent 25 minutes of time in patient care, including discussion with ER, Dolores Perez NP, record review, visit with patient and entering records into EMR. Date of Consultation April 26, 2023 Assessment & Plan (1) Perianal fistula due to Crohn's disease: Fistulizing Crohn's disease: The patient was admitted with perianal fistula/abscess. Tolerating IV antibiotics to include Ceftriaxone/Flagyl. Plan to transition to cefdinir versus Cefpodoxime plus Flagyl at discharge. Agree with this regimen and would continue. Steroid use was deferred on admission. I have discussed importance of compliance with patient. He he reports he will be compliant with medical treatments, medications, and therapy. I would recommend starting prednisone 40 mg at this time and decreasing by 5 mg weekly. I discussed this with the hospitalist service who has ordered. We will continue sulfasalazine at present. Patient needs biologic due to fistulizing Crohn's disease. This will be handled by my office at discharge. He has been provided with appointment for follow-up in the GI clinic. I will also help arrange colorectal service follow-up. Medical noncompliance: Unfortunately medical noncompliance has continued to complicate the patient's case. He has not been seen by my office in over a year. We discussed the importance of compliance with therapy to avoid further complications of his Crohn's disease. He does verbalize understanding. Plan as noted above. Chronic pain: The patient has had difficulty with pain management in the past. We discussed that the GI service will not be managing chronic pain complaints with narcotic medication. He does verbalize understanding. Case reviewed with Dr. Radford. Please refer to supervising physician addendum for further recommendations. I have spent 45 minutes of discrete time performing the activities of this visit which include but are not limited to review of the medical record, obtaining a history, physical exam, and entering information in the electronic record. (2) Crohn's disease: (3) Medically noncompliant: History of Present Illness Attending Physician: Bel Delgado MD History of Present Illness The patient is a 53-year-old male with past medical history to include fistulizing Crohn's disease with partial colectomy and ostomy placement with reversal who presented to the emergency department due to abdominal pain, fever and chills. Subsequently admitted with active Crohn's disease with right perianal fistula/abscess noted on CT. GI had service was consulted due to his history of Crohn's disease. The patient is well-known to me from the outpatient clinic. He has a history of medical noncompliance and was last seen by my office over a year ago. At that time it was recommended that the patient begin Entyvio. He reports that he had a great deal of personal life upheaval including his [id number] committed suicide in the coming primary caregiver for his [id number]. He reports that he is ready to make his health a priority and states that he will be compliant with appointments, treatments, medications. He reports that he has had intermittent fever noted at home. He has had weight loss over the last year per his report. Denies dysphagia. Does have history of heartburn. Denies mouth ulcerations. Denies nausea or vomiting. No use of aspirin, blood thinners, routine use of NSAIDs. Reports generalized abdominal pain rating a 6 out of 10. There are no enterocutaneous fistulas noted on his abdomen. Reports he was having liquid bowel movements and significant increasing gas 4+ times daily. He is now experiencing 2 loose to formed stools. He has noted intermittent blood in his stool. He reports he has been compliant with oral sulfasalazine. Allergies Allergy/AdvReac Type Severity Reaction Status Date / Time infliximab Allergy Severe TONGUE Verified 11/19/21 13:03 SWELLING, hives ciprofloxacin [From Cipro] Allergy Intermediate Knee Verified 11/19/21 13:03 Swelling metronidazole [From Flagyl] Allergy Intermediate Knee Verified 11/19/21 13:03 Swelling Penicillins Allergy Intermediate KNEE Unverified 04/24/23 15:58 SWELLING codeine Allergy Mild Rash Verified 11/19/21 13:03 doxycycline Allergy Unknown Unknown Unverified 04/24/23 15:58 Home Medications Medication Instructions Recorded Confirmed Type alprazolam 1 mg tablet 1 mg PO TID 05/18/19 04/24/23 History sulfasalazine 500 mg tablet 500 mg PO BID #180 tabs 01/27/21 04/24/23 Rx acetaminophen 500 mg tablet 1,000 mg PO Q6H PRN Pain 04/07/21 04/24/23 History (Tylenol Extra Strength) ondansetron HCl 4 mg tablet 4 mg PO Q6H PRN nausea and 04/14/21 04/24/23 Rx (Zofran) vomiting #6 tabs vedolizumab 300 mg intravenous 300 mg IV Q8WK #1 ea 04/22/21 04/24/23 Rx solution (Entyvio) lisinopril 10 mg tablet 10 mg PO QAM #90 tabs 05/20/21 04/24/23 Rx cholecalciferol (vitamin D3) 1,250 50,000 unit PO WK #12 caps 08/11/21 04/24/23 Rx mcg (50,000 unit) capsule loperamide 2 mg tablet (Imodium 2 mg PO Q6H PRN Diarrhea #60 tabs 08/11/21 04/24/23 Rx A-D) loratadine 10 mg tablet (Claritin) 10 mg PO QAM #90 tabs 08/11/21 04/24/23 Rx vitamin B complex (B 1 tab PO QAM #90 tabs 12/01/21 04/24/23 Rx Complex-Vitamin B12 tablet) MULTIDAY VITAMIN QC See Rx Instructions .Route 12/02/21 04/24/23 Rx .COMPLEX #90 tabs magnesium oxide 400 mg PO BID #20 caps 12/04/22 04/24/23 Rx famotidine-Ca carb-mag hydrox 10 0 tab PO DAILY 04/24/23 04/24/23 History mg-800 mg-165 mg chewable tablet (Pepcid Complete) omega 7-myx-ant-fish oil 1,000 mg 1 cap PO DAILY 04/24/23 04/24/23 History (120 mg-180 mg) capsule (Fish Oil) oxycodone 5 mg tablet 0 mg PO Q6H PRN pain 04/24/23 04/24/23 History oxycodone-acetaminophen 5 mg-325 0 tab PO Q8H PRN pain 04/24/23 04/24/23 History mg tablet (Percocet) quetiapine 50 mg tablet 50 mg PO HS 04/24/23 04/24/23 History Patient History Medical History Anemia chronic Anxiety Cardiac murmur no further details; no murmur noted per [facility] ER evaluation 05/18/19* Crohns disease GERD (gastroesophageal reflux disease) 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 Hypertension Lyme disease diagnosed 03/2021--currently on antibiotics Medical marijuana use Opioid dependence Perianal fistula due to Crohn's disease Throat pain Tongue pain Surgical History Fistula anal fistula x2 with repair--currently has [address] H/O skin graft RIGHT LEG History of bowel resection X2 TOTAL History of colonoscopy History of esophagogastroduodenoscopy (EGD) History of incision and drainage (~12/2020) perianal fistula and abdominal wall abcess with seton placement @ [facility] History of open reduction and internal fixation (ORIF) procedure LEFT ANKLE History of surgery Salivary Gland - 2018, Sublingual Gland - 2019 History of tonsillectomy Family History Mother Family hx of colon cancer Stroke Family/Other Family history of diabetes mellitus Other Allergies Cancer Colorectal cancer Hypertension No family history of adverse response to anesthesia No family history of bleeding disorder Denies family history of Ovarian cancer Prostate cancer Myocardial infarction Breast cancer Social History Smoking Status: Current every day smoker Tobacco Type: Cigarettes Age Started Using Tobacco: 14; Age Quit Using Tobacco: 51; Cigarettes Per Day: 2 cigarettes per day at most; Second Hand Exposure: No; Do You Dip or Chew Tobacco: No; Tobacco Cessation Education Requested by Patient: No Hx Alcohol Use: No Hx Substance Use: No Preferred Language: Croatian Communication Ability: Effective Visual Impairment: No Limitations Hearing Ability: Normal 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 Beliefs That Will Affect Care: None marital status: Current Living Situation: Spouse current occupational status: disabled Other Information That Helps Us Care for You: No Feels Safe at Home: Yes Safety Concerns: Feels Safe At This Time Childhood Exposure to Second-Hand Smoke: Yes Diet: regular Dental Care, Regularly: Yes Physical Activity Frequency: Does not Exercise Seatbelt Use: always Sunscreen Use: No Assistive Devices: None Review of Systems Review of Systems: All systems reviewed & are unremarkable except as noted in Subjective Physical Exam Respiratory: normal respiratory effort; no respiratory distress and no labored breathing Cardiovascular: Rate/Rhythm: regular rate and regular rhythm Gastrointestinal (Abdomen): Inspection/Auscultation: abdomen normal to inspection and normal bowel sounds; abdomen not distended Percussion/Palpation: + abdomen tender and abdomen soft; no guarding and abdomen not rigid Rectal Exam: + abnormal visual inspection of rectum (perianal fistulas noted with seton in place) Results & Data Vital Signs (Past 12 Hours) Vital Signs Temp Pulse Resp BP Pulse Ox O2 Del Method 04/26/23 08:01 36.7 C 82 16 126/83 96 Room Air Laboratory Results Laboratory Results - last 24 hr 04/26/23 04/26/23 08:32 08:32 WBC 6.95 RBC 4.02 L Hgb 11.0 L Hct 34.5 L MCV 85.8 MCH 27.4 MCHC 31.9 L RDW Std Deviation 47.2 H RDW Coeff of Juancarlos 15.0 H Plt Count 226 MPV 10.5 Immature Gran % (Auto) 0.4 Neut % (Auto) 57.0 Lymph % (Auto) 31.4 [place] % (Auto) 5.9 Eos % (Auto) 4.6 Baso % (Auto) 0.7 Neut # (Auto) 3.96 Lymph # (Auto) 2.18 [place] # (Auto) 0.41 Eos # (Auto) 0.32 Baso # (Auto) 0.05 Immature Gran # (Auto) 0.03 Sodium 141 Potassium 3.4 L Chloride 109 H Carbon Dioxide 25 Anion Gap 7 BUN 12 Creatinine 0.79 Est Cr Clr Drug Dosing 95.4 Est GFR ( Amer) 120.5 Est GFR (Non-Af Amer) 104.0 BUN/Creatinine Ratio 15.2 Glucose 107 H Calcium 8.6 Magnesium 1.6 L Diagnostic Findings Abdomen/Pelvis CT 04/24/23 11:56 CT SCAN OF THE ABDOMEN AND PELVIS WITH IV CONTRAST CLINICAL HISTORY: Left upper quadrant abdominal pain. COMPARISON STUDY: Abdominal CT dated 12/03/2022. TECHNIQUE: Following the IV administration of 83 cc of Optiray 320, CT scan of the abdomen and pelvis is performed from the lung bases to the proximal femora. Images are reviewed in the axial, sagittal, and coronal planes. IV contrast was administered without complication. A dose lowering technique was utilized adhering to the principles of ALARA. CT DOSE: 462.40 mGy.cm FINDINGS: Lung bases: The heart is normal in size and without pericardial effusion. A calcified granuloma is seen in the right lower lobe. The lung bases are otherwise clear. A small fat-containing Bochdalek hernia is noted on the left. A peripherally calcified 3 cm fat attenuation structure in the left cardiophrenic angle is unchanged. Liver: The contrast-enhanced liver is normal in size, contour, and attenuation. There is no intrahepatic biliary ductal dilatation. The hepatic veins and portal veins are patent. Gallbladder: Unremarkable. Spleen: Normal in size and attenuation. Pancreas: Unremarkable. Adrenal glands: A 19 mm right adrenal adenoma is unchanged. The left adrenal gland is normal in appearance. Kidneys: The contrast enhanced kidneys are normal in size and without hydronephrosis. The kidneys enhance symmetrically. Abdominal vasculature: The abdominal aorta is normal in course and caliber noting mild atherosclerotic calcification. Bowel: There is postsurgical change from distal ilial resection with ileocolic anastomosis. No bowel obstruction is identified. Moderate fecal retention is present through out the colon. There is a long segment of thick-walled or hyperemic distal small bowel. This extends to the ileocolic anastomosis and favors active Crohn's disease. There is no CT evidence of stricture or abscess. Peritoneum: There is no intraperitoneal free air or abdominal ascites. Lymphadenopathy: Prominent mesenteric lymph nodes are likely reactive. Pelvic viscera: The bladder, prostate, and seminal vesicles are normal as visualized. A perianal Seton is in place. This is similar to previous. A 2.5 x 1.0 cm gas and fluid containing right perianal collection is seen on image #331. This extends into the ischioanal tissues and approximates the anus at the 6:00 position. Skeletal structures: Sclerotic changes noted in the sacroiliac joints. A 12 mm bone island is again seen in the left iliac wing. No lytic or blastic lesions are seen. Soft tissues: The patient is cachectic. IMPRESSION: 1. There is postsurgical change from distal ileal resection with ileocolic anastomosis. No bowel obstruction is identified. 2. There is a long segment of thick-walled and hyperemic distal small bowel above the ileocolic anastomosis. The appearance favors active Crohn's disease and clinical correlation will be required. 3. A perianal Seton is unchanged in position. A gas and fluid containing right perianal fluid collection as above likely represents a small fistula/abscess. 4. Additional findings as above. ACT 112: Negative or not required by law. Electronically signed by: Eddie Weiner M.D. 04/24/2023 1:49 PM
[2023-04-26] MEDS ORDERED: POTASSIUM CHLORIDE CRTAB 20 MEQ TABCR PO STA (10:54)
[2023-04-26] MEDS: MAGNESIUM SULFATE / D5W 1 GM/100 ML BAG IV SCH ×2 (11:30→13:30)
[2023-04-26] MEDS: oxyCODONE HCL IR 5 MG TAB (IMMEDIATE RELEASE) PO PRN (11:31)
--- NOTE | 2023-04-26 16:05 | Discharge Summary ---
Date of Service April 26, 2023 Admission HPI Per Admitting Provider Hollis is a 53-year-old male with a history of Crohn's with partial colectomy and past ostomy placement with reversal who presents for evaluation of abdominal pain, fever, and chills. Abdominal pain in the center and low abdomen an dradiates into the back/rectum which started 2 months ago, but and has gradually worsened and has been much worse over the last 3 weeks.. Has a burning quality. +Gas but difficulty passing stool. +Fevers, +chills. No rigors. 10 days ago had a few episodes of nonbloody vomiting. +constipation. No bloody vomit, +mucousy BMs now very liquid. 1x with a little blood. Follows with [facility] in the past. Has a hx of Crohns. Had a stoma post partial colectomy/fistula surgery. Stoma reversed 11 months ago and did OK after. Needed 1 top up of fluids, but did well otherwise. Reversed after 9 weeks due to high output. Was doing well, but father in law passed in the last few weeks and mother in law had to move to a half-way which has increased his stress. Is on sulfasalazine, eventually is going to start Activio but deferred this due to deaths in the family. Takes sufasalazine as direct. No recent steroid use. Last steroid use was a taper after reversal of his ostomy. Takes omega 3 oil., Thinks this is helped his symptoms. Otherwise denies remitting factors/attempted treatment. Denies chest pain, chest pressure, shortness of breath, difficulty breathing. No lightheadedness/dizzin ess. Medical History: Reviewed Medications: Reviewed Surgical History: Reviewed Family history: Reviewed Allergies: Reviewed. Leg swelling with cipro in the past, reportts he cannot take cipro. Same thing with amoxicillin, has tolerated cephalosporins Social History: No etoh use. Tobacco use current 0.5ppd. Declines patch Code Status: Full Code Admission Exam Per Admitting Provider General: A&Ox3. NAD. Cooperative. HEENT: Atraumatic, normocephalic. Vision/hearing intact Pulm: CTAB A&P. -wheezes, -rales, -rhonchi. Symmetrical chest rise. No increased work of breathing. No respiratory distress. Cardiac: RRR, -mrg. Radial pulses intact and symmetrical. Abdominal: Healed ostomy scar, prior surgical scars. Diffuse mild tenderness to palpation, nondistended, soft. BS present bu tdiminished. Extremities: warm, dry. Moves all extremities equally Principal Diagnosis Fistulizing Crohns, Rectal Abscess Discharge Exam General: chronically ill thin appearing male, dressed and ready for discharge, NAD HEENT: head normocephalic, atraumatic, mm improved, trachea midline Resp: CTA, no w/c, on room air CV: RRR, no significant m/r/g, no pitting edema GI: +BS, soft, minimal tenderness much improved/stable, no guarding/rigidity, healed ostomy scar Rectal: seton present anterior to anus, several additional perianal fistulas noted, tenderness to palpation MSK/Neuro: no slurred speech/facial droop, no focal deficit Psych: aox3, cooperative Discharge Data Allergies Allergy/AdvReac Type Severity Reaction Status Date / Time infliximab Allergy Severe TONGUE Verified 11/19/21 13:03 SWELLING, hives ciprofloxacin [From Cipro] Allergy Intermediate Knee Verified 11/19/21 13:03 Swelling metronidazole [From Flagyl] Allergy Intermediate Knee Verified 11/19/21 13:03 Swelling Penicillins Allergy Intermediate KNEE Unverified 04/24/23 15:58 SWELLING codeine Allergy Mild Rash Verified 11/19/21 13:03 doxycycline Allergy Unknown Unknown Unverified 04/24/23 15:58 Consultations 04/25/23 12:54 Consult Gastroenterology Routine Ordered Studies Abdomen/Pelvis CT 04/24/23 11:56 CT SCAN OF THE ABDOMEN AND PELVIS WITH IV CONTRAST CLINICAL HISTORY: Left upper quadrant abdominal pain. COMPARISON STUDY: Abdominal CT dated 12/03/2022. TECHNIQUE: Following the IV administration of 83 cc of Optiray 320, CT scan of the abdomen and pelvis is performed from the lung bases to the proximal femora. Images are reviewed in the axial, sagittal, and coronal planes. IV contrast was administered without complication. A dose lowering technique was utilized adhering to the principles of ALARA. CT DOSE: 462.40 mGy.cm FINDINGS: Lung bases: The heart is normal in size and without pericardial effusion. A calcified granuloma is seen in the right lower lobe. The lung bases are otherwise clear. A small fat-containing Bochdalek hernia is noted on the left. A peripherally calcified 3 cm fat attenuation structure in the left cardiophrenic angle is unchanged. Liver: The contrast-enhanced liver is normal in size, contour, and attenuation. There is no intrahepatic biliary ductal dilatation. The hepatic veins and portal veins are patent. Gallbladder: Unremarkable. Spleen: Normal in size and attenuation. Pancreas: Unremarkable. Adrenal glands: A 19 mm right adrenal adenoma is unchanged. The left adrenal gland is normal in appearance. Kidneys: The contrast enhanced kidneys are normal in size and without hydronephrosis. The kidneys enhance symmetrically. Abdominal vasculature: The abdominal aorta is normal in course and caliber noting mild atherosclerotic calcification. Bowel: There is postsurgical change from distal ilial resection with ileocolic anastomosis. No bowel obstruction is identified. Moderate fecal retention is present through out the colon. There is a long segment of thick-walled or hyperemic distal small bowel. This extends to the ileocolic anastomosis and favors active Crohn's disease. There is no CT evidence of stricture or abscess. Peritoneum: There is no intraperitoneal free air or abdominal ascites. Lymphadenopathy: Prominent mesenteric lymph nodes are likely reactive. Pelvic viscera: The bladder, prostate, and seminal vesicles are normal as visualized. A perianal Seton is in place. This is similar to previous. A 2.5 x 1.0 cm gas and fluid containing right perianal collection is seen on image #331. This extends into the ischioanal tissues and approximates the anus at the 6:00 position. Skeletal structures: Sclerotic changes noted in the sacroiliac joints. A 12 mm bone island is again seen in the left iliac wing. No lytic or blastic lesions are seen. Soft tissues: The patient is cachectic. IMPRESSION: 1. There is postsurgical change from distal ileal resection with ileocolic anastomosis. No bowel obstruction is identified. 2. There is a long segment of thick-walled and hyperemic distal small bowel above the ileocolic anastomosis. The appearance favors active Crohn's disease and clinical correlation will be required. 3. A perianal Seton is unchanged in position. A gas and fluid containing right perianal fluid collection as above likely represents a small fistula/abscess. 4. Additional findings as above. ACT 112: Negative or not required by law. Electronically signed by: Eddie Weiner M.D. 04/24/2023 1:49 PM Hospital Course (1) Crohn's disease: Crohns, acute on chronic complicated by perirectal fistula Patient with around 2 months of chronically worsening abdominal pain with radiation to the rectum, which is significantly worse in the last 3 weeks along with purulent drainage from his rectum in site of seton drain (I did discuss w/ IR and given size not touching but suspect need colorectal to address/remove seton/address additional tracts in f/u) Patient had not had recent good outpt f/u due to stressors w 's family/YANG committed suicide/etc Patient w/ Hx partial colectomy w/ hx ostomy and s/p reversal last year CTAP on admission w/ There is postsurgical change from distal ileal resection with ileocolic anastomosis. No bowel obstruction is identified. Long segment of thick-walled and hyperemic distal small bowel above the ileocolic anastomosis. The appearance favors active Crohn's disease and clinical correlation will be required. A perianal Seton is unchanged in position. A gas and fluid containing right perianal fluid collection as above likely represents a small fistula/abscess. Active Crohn's disease with right perianal fistula/abscess noted on CT. CRP elevation Discussed w/ GI/General surgery on admission who recommended antibiotics/pain control and outpatient follow up colorectal surgery For abx while inpatient, given Ceftriaxone/Flagyl as prior issues w/ Cipro reported/joint swelling. Tolerated well and dc on extended course Flagyl/Cefdinir and f/u colorectal surgery which Dolores Perez said they will be arranging on their end. WBC wnl, afebrile GI had initially recommended AGAINST steroids give patients prior noncompliance however was discussed w/ patient at length getting better control of his underlying Crohns/fistulizing disease and he is committed to follow up/treatment Started prednisone 40mg daily prior to discharge x 1 week and GI to rx tapered course in follow up next week. They are also working to start the Entyvio for patient as he had not begun this (had to complete rx for latent TB prior to beginning) Rx for oxycodone for rectal pain provided. +BMs, formed up, scant blood but hgb stable/improved on repeat and patient reporting less purulent drainage and significant improvement in gas pains prior to discharge Of note, mag 1.6 prior to dc (on mag BID at home) and IV provided. K 3.4 and PO provided. Diet advanced to low fiber diet at discharge, adv as tolerated (2) H/O: HTN (hypertension): BP stable and continued on lisinopril Anxiety Stable mood on exam, support provided. continued home Ativan 1mg TID (3) Perianal fistula due to Crohn's disease: needing colorectal f/u as above. [facility] to arrange in follow up as discussed Plan DVT prophylaxis: SCDs, has been ambulating in the room without issue, no evidence for DVT at present Total Time Total Time Spent Total Time Spent (In Minutes): 50 Discharge Plan Discharge Items Patient Disposition: Home - Self-Care Reason For Visit: RECTAL ABSCESS, PAIN Discharge Diagnosis: Fistulizing Crohns Goals: You have been hospitalized for an acute medical problem. During your stay at [facility], we have made an effort to correct the problem that brought you to the hospital while keeping you as comfortable as possible. Medications were used to bring your condition under control and your discharge instructions will include directions for any medications you should take after leaving the hospital. Please make sure you see your Primary Care Provider as part of your follow up plan. Activity: As commented below Non-emergency contact: Primary Care Provider and Respiratory Director Call non-emergency contact if: you have any medication questions, your symptoms worsen and your pain is not controlled Follow-up/Referrals: Mahad Smith DO [Physician] - 05/01/23 9:20 am Dolores Perez CRNP [Nurse Practitioner] - 05/02/23 10:00 am Diet: Low Fiber Addtl Attending Provider Instructions: You have been hospitalized for abdominal pain/fevers and found to have evidence for active chron's flare with fistulizing disease. GI was consulted and you were given IV antibiotics which will be continued as Flagyl and Cefpodoxime Dolores Perez will be assisting with arranging follow up for colorectal surgery to assist in treating this fistulizing disease. You are also going to be starting Entyvio as an outpatient. Please continue prednisone 40mg daily as per GI, and they will send new prescription to decrease by 5mg weekly after. Please follow up with primary care in the next 7-10 days to monitor your progress after hospitalization as well as with GI for coordination of care. Please return to the ER with any worsening pain, fever, inability to keep up with oral intake, or for any other symptoms concerning for you. Pending Studies at Discharge: No Stand-Alone Forms: My [facility], Smoking Cessation Medications and DC Order Prescriptions: New prednisone 20 mg Tablet 40 mg PO QAM Qty: 7 0RF metronidazole 500 mg tablet 500 mg PO BID 14 Days Qty: 28 0RF cefdinir 300 mg capsule 300 mg PO BID 14 Days Qty: 28 0RF oxycodone 10 mg tablet 10 mg PO Q8H PRN (Reason: pain) Qty: 14 0RF Continued sulfasalazine 500 mg tablet 500 mg PO BID Qty: 180 1RF Rx Instructions: TAKE WITH FOOD. Entyvio 300 mg recon soln 300 mg IV Q8WK Qty: 1 8RF Rx Instructions: PER PT "DID NOT START YET". MISSED APPOINTMENT TO START lisinopril 10 mg tablet 10 mg PO QAM Qty: 90 3RF cholecalciferol (vitamin D3) 1,250 mcg (50,000 unit) capsule 50,000 unit PO WK Qty: 12 1RF Rx Instructions: TAKE THIS MED EVERY SUNDAYS loperamide [Imodium A-D] 2 mg tablet 2 mg PO Q6H PRN (Reason: Diarrhea) Qty: 60 5RF loratadine [Claritin] 10 mg tablet 10 mg PO QAM Qty: 90 3RF vitamin B complex [B Complex-Vitamin B12] Tablet 1 tab PO QAM Qty: 90 1RF MULTIDAY VITAMIN QC See Rx Instructions .ROUTE .COMPLEX Qty: 90 1RF Dose Instruction: TAKE ONE TABLET BY MOUTH EVERY DAY Rx Instructions: TAKE ONE TABLET BY MOUTH EVERY DAY ondansetron HCl [Zofran] 4 mg tablet 4 mg PO Q6H PRN (Reason: nausea and vomiting) Qty: 6 0RF alprazolam 1 mg tablet 1 mg PO TID acetaminophen [Tylenol Extra Strength] 500 mg Tablet 1,000 mg PO Q6H PRN (Reason: Pain) quetiapine 50 mg tablet 50 mg PO HS Pepcid Complete 10-800-165 mg Tablet,Chewable 0 tab PO DAILY omega 7-ceq-kam-fish oil [Fish Oil] 1,000 mg (120 mg-180 mg) Capsule 1 cap PO DAILY Rx Instructions: JUST STARTED 3 WEEKS AGO. magnesium oxide 400 mg magnesium capsule 400 mg PO BID Qty: 20 0RF Discontinued oxycodone-acetaminophen [Percocet] 5-325 mg tablet 0 tab PO Q8H PRN (Reason: pain) oxycodone 5 mg tablet 0 mg PO Q6H PRN (Reason: pain) Discharge Orders: Discharge Order (Routine); Ordered 04/26/23 Ordered By: Lennie Greenberg Admission Data Admit Date/Time: 04/24/23 16:54 Attending Provider: Bel Delgado Admit Provider: Mark Singh Primary Care Provider: PCP,NO Other Providers: Dolores Perez Other Interventions: Discharge Summary Assessment (RN) Last Done: 04/26/23 13:49 Supervising Physician Co-Signing Physician Notes PA Supervision Note: I personally saw and examined the patient. I verified all ngo points and agree with GADIEL Greenberg with the following exceptions and/or additions: S-Pt feeling much better, pain in rectal area much improved O- Vitals reviewed Gen: [AAOx3, NAD] HEENT: [anicteric sclerae, EOMI] CV: [RRR no mgr nl S1S2] Pulm: [CTAB no wcr] Abd: [+BS soft NT ND no masses or hernias] Ext: [no edema, 2+ DP pulses] Skin: [no rashes, warm/dry] Neuro: [full strength throughout] A/P-53 yo male here with rectal abscess and fistula from Crohn's. Start prednisone for active Crohn's flare, continue abx for infection, f/u with GI Coding Level of Care Code 36074 INP/OBS DISCH >30 MIN Diagnoses Crohn's disease K50.919 Digestive disease complication type: unspecified complication Gastrointestinal tract location: unspecified location H/O: HTN (hypertension) Z86.79 Perianal fistula due to Crohn's disease K50.913
== END 2023-04-26 15:23 | disposition home or self-care (01) ==
LOC: 3W 11:15 → ED 11:15 → SUATTDRO 16:54 → 3W 18:03